=== PATIENT | male | born 1960 | race Hispanic/Latino ===

== ENCOUNTER 2018-07-15 12:10 | Emergency (ER) | payer BC, OTHER ==
[~2018-07-15 12:10] MED LIST: AMLO1CAP6 PO; ASPI-555 PO; ATOR40TA69 PO; ESOM20CA34 PO; INSU300I SQ
[2018-07-15 12:48] LABS: BASOPHILS % (AUTO) 0.9 % (0.0-5.0); EOSINOPHILS % (AUTO) 1.6 % (0.0-8.0); HEMATOCRIT 41.4 % (42-54); LYMPHOCYTES % (AUTO) 13.6 % (21.0-51.0); MEAN CORPUSCULAR HGB CONC 35.2 g/dL (32.0-36.0); MEAN CORPUSCULAR VOLUME 93.6 fL (79-99); MONOCYTES % (AUTO) 9.3 % (3.0-13.0); NEUTROPHILS % (AUTO) 74.6 % (40.0-77.0); PLATELET COUNT (AUTO) 154 K/uL (130-400); RED BLOOD CELL COUNT(AUTO) 4.42 MIL/uL (4.50-6.20); WHITE BLOOD COUNT (AUTO) 5.3 K/uL (4.8-10.8)
[2018-07-15 12:52] LABS: CREATININE 1.6 mg/dL (0.5-1.5); POTASSIUM 3.8 mmol/L (3.5-5.1)
[2018-07-15] MEDS ORDERED: SODIUM CHLORIDE 0.9% 1000ML 1,000 ML IV ONE (12:52)
[2018-07-15] MEDS ORDERED: ONDANSETRON HCL 4 MG/2 ML VIAL ONE (12:52)
[2018-07-15 13:01] LABS: ALBUMIN 4.3 g/dL (3.5-5.0)
== END 2018-07-15 15:05 | disposition home or self-care (01) ==
LOC: EDH 12:10
DX: R55 Syncope and collapse (principal); E11.65 Type 2 diabetes mellitus with hyperglycemia; E78.5 Hyperlipidemia, unspecified; I10 Essential (primary) hypertension; Z98.890 Other specified postprocedural states; Z88.1 Allergy status to other antibiotic agents; Z87.891 Personal history of nicotine dependence
CPT/HCPCS: 36415; 80053; 82550; 82948; 83880; 84484; 85025; 93005; 96361; 96374; 99285; J2405; J7030

== ENCOUNTER 2019-02-21 07:51 | Emergency (ER) | payer BC, OTHER ==
[2019-02-21] MEDS ORDERED: SODIUM CHLORIDE 0.9% 1000ML 1,000 ML IV ONE ×3 (08:16→10:38)
[2019-02-21] MEDS ORDERED: ONDANSETRON HCL 4 MG/2 ML VIAL ONE (08:16)
[2019-02-21 08:30] LABS: APPEARANCE,URINE Clear (CLEAR); BILIRUBIN,URINE Negative (NEGATIVE); COLOR,URINE Yellow (YELLOW); GLUCOSE, URINE (UA) >=1000 mg/dL (NEGATIVE); KETONES,URINE 40 mg/dL (NEGATIVE); LEUKOCYTE ESTERASE ,URINE Negative (NEGATIVE); NITRATE,URINE Negative (NEGATIVE); OCCULT BLOOD,URINE Negative (NEGATIVE); PROTEIN,URINE Trace mg/dL (NEGATIVE); UROBILINOGEN,URINE 0.2 mg/dL (0.2-1.0)
[2019-02-21 08:35] LABS: BASOPHILS % (AUTO) 0.4 % (0.0-5.0); EOSINOPHILS % (AUTO) 1.4 % (0.0-8.0); HEMATOCRIT 44.5 % (42-54); LYMPHOCYTES % (AUTO) 11.3 % (21.0-51.0); MEAN CORPUSCULAR HEMOGLOBIN 33.6 pg (27.0-33.0); MEAN CORPUSCULAR HGB CONC 35.1 g/dL (32.0-36.0); MEAN CORPUSCULAR VOLUME 95.6 fL (79-99); MONOCYTES % (AUTO) 9.4 % (3.0-13.0); NEUTROPHILS % (AUTO) 77.5 % (40.0-77.0); NUCLEATED RED BLOOD CELLS 0.1 % (0.0-0.19); PLATELET COUNT (AUTO) 144 K/uL (130-400); RED BLOOD CELL COUNT(AUTO) 4.65 MIL/uL (4.50-6.20); RED CELL DISTRIBUTION WIDTH 12.9 % (11.0-15.5); WHITE BLOOD COUNT (AUTO) 4.8 K/uL (4.8-10.8)
[2019-02-21 08:48] LABS: ABG BASE EXCESS -9.1 mmol/L (-2.0-3.0); ABG HCO3 15.1 mmol/L (21.0-28.0); ABG OXYGEN SATURATION 97.7 % (95.0-99.0); ABG PCO2 29 mmHg (35-48)
[2019-02-21 08:54] LABS: ALBUMIN 4.3 g/dL (3.5-5.0); BILIRUBIN,DIRECT 0.3 mg/dL (0.0-0.3); BILIRUBIN,TOTAL 1.3 mg/dL (0.2-1.0); CREATININE 1.2 mg/dL (0.5-1.5); POTASSIUM 4.5 mmol/L (3.5-5.1)
[2019-02-21 09:23] LABS: BACTERIA,URINE Rare /HPF (None Seen); RBC,URINE 0-1 /HPF (0-1); SQUAMOUS EPITHELIAL CELL,UR Rare /HPF (0-2); WBC,URINE 0-1 /HPF (0-1)
[2019-02-21] MEDS ORDERED: INSULIN HUMULIN R 100 UNIT/ML 3ML ONE (09:37)
[2019-02-21 12:16] LABS: POTASSIUM 3.8 mmol/L (3.5-5.1)
== END 2019-02-21 14:28 | disposition home or self-care (01) ==
LOC: EDH 07:51
DX: E11.65 Type 2 diabetes mellitus with hyperglycemia (principal); I10 Essential (primary) hypertension; E78.5 Hyperlipidemia, unspecified; Z79.4 Long term (current) use of insulin; Z88.1 Allergy status to other antibiotic agents; Z98.890 Other specified postprocedural states
CPT/HCPCS: 36415; 36600; 80048 ×2; 80076; 81001; 82435; 82550; 82803; 82947; 82948; 83605; 83690; 84132; 84295; 84484; 85018; 85025; 93005; 96361; 96374; 96375; 99285; J1815; J2405; J7030 ×3

== ENCOUNTER 2019-07-03 07:47 | Inpatient (IN) | payer BC, OTHER ==
[~2019-07-03] VITALS: Ht 172.7 cm; Wt 75.8 kg
[2019-07-03] VITALS (8 sets, daily range): BP systolic 127–153; BP diastolic 74–90
[2019-07-03 08:06] LABS: BASOPHILS % (AUTO) 0.4 % (0.0-5.0); EOSINOPHILS % (AUTO) 1.2 % (0.0-8.0); HEMATOCRIT 41.6 % (42-54); LYMPHOCYTES % (AUTO) 20.2 % (21.0-51.0); MEAN CORPUSCULAR HGB CONC 33.6 g/dL (32.0-36.0); MEAN CORPUSCULAR VOLUME 98.1 fL (79-99); MONOCYTES % (AUTO) 10.2 % (3.0-13.0); NUCLEATED RED BLOOD CELLS 0.1 % (0.0-0.19); PLATELET COUNT (AUTO) 193 K/uL (130-400); RED BLOOD CELL COUNT(AUTO) 4.24 MIL/uL (4.50-6.20); RED CELL DISTRIBUTION WIDTH 12.7 % (11.0-15.5); WHITE BLOOD COUNT (AUTO) 6.3 K/uL (4.8-10.8)
[2019-07-03 08:12] LABS: APPEARANCE,URINE Clear (CLEAR); BILIRUBIN,URINE Negative (NEGATIVE); COLOR,URINE Yellow (YELLOW); GLUCOSE, URINE (UA) >=1000 mg/dL (NEGATIVE); KETONES,URINE >=80 mg/dL (NEGATIVE); LEUKOCYTE ESTERASE ,URINE Negative (NEGATIVE); NITRATE,URINE Negative (NEGATIVE); OCCULT BLOOD,URINE Negative (NEGATIVE); PROTEIN,URINE Negative (NEGATIVE)
[2019-07-03] MEDS ORDERED: ONDANSETRON HCL 4 MG/2 ML VIAL ONE (08:13)
[2019-07-03] MEDS ORDERED: INSULIN HUMULIN R 100 UNIT/ML 3ML ONE ×2 (08:14→09:47)
[2019-07-03] MEDS ORDERED: SODIUM CHLORIDE 0.9% 1000ML 1,000 ML IV ONE ×3 (08:15→09:56)
[2019-07-03 08:19] LABS: CREATININE 1.5 mg/dL (0.5-1.5); POTASSIUM 5.1 mmol/L (3.5-5.1); TOTAL PROTEIN, SERUM 7.8 g/dL (6.0-8.3)
[2019-07-03 08:28] LABS: BACTERIA,URINE Rare /HPF (None Seen); RBC,URINE 0-1 /HPF (0-1); SQUAMOUS EPITHELIAL CELL,UR Rare /HPF (0-2); WBC,URINE 0-1 /HPF (0-1)
[2019-07-03 08:58] LABS: ABG PCO2 21 mmHg (35-48)
[2019-07-03] MEDS: SODIUM CHLORIDE 0.9% 1000ML 1,000 ML IV SCH ×3 (09:43→22:17)
[2019-07-03] MEDS ORDERED: DEXTROSE 5 %-0.45 % NACL 1,000 ML IV PRN ×2 (09:43)
[2019-07-03] MEDS ORDERED: SODIUM CHLORIDE 0.9% 1000ML 1,000 ML IV SCH ×3 (09:43)
[2019-07-03] MEDS ORDERED: POTASSIUM CHLORIDE 10MEQ/100ML 100 ML IV PRN ×2 (09:45)
[2019-07-03] MEDS ORDERED: DEXTROSE 5 %-0.45 % NACL 1,000 ML IV ONE (09:46)
[2019-07-03] MEDS ORDERED: SODIUM CHLORIDE 0.9% 100 ML IV ONE (09:48)
[2019-07-03 09:52] LABS: MAGNESIUM 2.3 mg/dL (1.80-2.40); PHOSPHORUS 5.5 mg/dL (2.5-4.9)
[2019-07-03] MEDS ORDERED: SODIUM BICARBONATE 650 MG TAB PO SCH (10:45)
[2019-07-03 11:07] LABS: CREATININE,URINE RANDOM 46 mg/dL (30-135); SODIUM,URINE RANDOM 37 mmol/l (40-220)
[2019-07-03 11:14] LABS: HEMOGLOBIN A1C 9.5 % (4.0-6.0)
[2019-07-03] MEDS ORDERED: ACETAMINOPHEN 325 MG TAB PO PRN (11:15)
[2019-07-03] MEDS ORDERED: ONDANSETRON HCL 4 MG/2 ML VIAL IVP PRN (11:15)
[2019-07-03 14:12] LABS: ABG BASE EXCESS -11.5 mmol/L (-2.0-3.0); ABG HCO3 13.4 mmol/L (21.0-28.0); ABG OXYGEN SATURATION 96.1 % (95.0-99.0); ABG PCO2 28 mmHg (35-48)
[2019-07-03 14:48] LABS: CREATININE 1.3 mg/dL (0.5-1.5); POTASSIUM 4.8 mmol/L (3.5-5.1)
[2019-07-03] MEDS ORDERED: INSU300I SQ (17:13)
[2019-07-03] MEDS: FAMOTIDINE/PF 20 MG/2 ML VIAL IV SCH (20:34)
[2019-07-03] MEDS: SODIUM BICARBONATE 650 MG TAB PO SCH (20:35)
[2019-07-03 20:36] LABS: CREATININE 1.2 mg/dL (0.5-1.5)
[2019-07-03] MEDS ORDERED: INSULIN HUMULIN R 100 UNIT/ML 3ML SQ SCH (22:00)
[2019-07-03] MEDS: INSULIN HUMULIN R 100 UNIT/ML 3ML SQ SCH (22:15)
[2019-07-03 22:27] LABS: ABG BASE EXCESS -3.1 mmol/L (-2.0-3.0); ABG HCO3 20.4 mmol/L (21.0-28.0); ABG OXYGEN SATURATION 97.7 % (95.0-99.0); ABG PCO2 32 mmHg (35-48)
[2019-07-04] MEDS: SODIUM CHLORIDE 0.9% 1000ML 1,000 ML IV SCH ×2 (02:35→10:35)
[2019-07-04 02:45] VITALS: BP 159/83
--- NOTE | 2019-07-04 02:45 | NUR ---
ICU TRANSFER PT TRANSFERRED FROM 217 INTO ROOM 408 VIA WHEELCHAIR. PT AWAKE, ALERT AND RESPONSIVE NO C/O PAIN OR DISCOMFORT AT THIS TIME. PT ORIENTED TO ROOM, CALL OLIVEROS WITHIN REACH, BED IN LOWEST POSITION. Addendum: 07/04/19 at 0247 by YOLANDA WHITT RN Amended: Links added.
--- NOTE | 2019-07-04 02:50 | NUR ---
REPORT GIVEN TO MORALES ZUNIGA, TRANSFERRED TO ROOM 408.
[2019-07-04 04:34] LABS: ABG BASE EXCESS -4.6 mmol/L (-2.0-3.0); ABG HCO3 18.6 mmol/L (21.0-28.0); ABG OXYGEN SATURATION 98.1 % (95.0-99.0); ABG PCO2 30 mmHg (35-48)
[2019-07-04 05:14] LABS: BASOPHILS % (AUTO) 0.3 % (0.0-5.0); EOSINOPHILS % (AUTO) 1.7 % (0.0-8.0); HEMATOCRIT 37.6 % (42-54); LYMPHOCYTES % (AUTO) 13.7 % (21.0-51.0); MEAN CORPUSCULAR HEMOGLOBIN 33.4 pg (27.0-33.0); MEAN CORPUSCULAR VOLUME 95.6 fL (79-99); MONOCYTES % (AUTO) 15.7 % (3.0-13.0); NEUTROPHILS % (AUTO) 68.6 % (40.0-77.0); PLATELET COUNT (AUTO) 163 K/uL (130-400); RED BLOOD CELL COUNT(AUTO) 3.93 MIL/uL (4.50-6.20); RED CELL DISTRIBUTION WIDTH 12.7 % (11.0-15.5); WHITE BLOOD COUNT (AUTO) 5.4 K/uL (4.8-10.8)
[2019-07-04 05:29] LABS: CREATININE 0.9 mg/dL (0.5-1.5); MAGNESIUM 1.8 mg/dL (1.80-2.40)
[2019-07-04] MEDS: INSULIN HUMULIN R 100 UNIT/ML 3ML SQ SCH ×6 (05:44→16:58)
[2019-07-04 08:08] VITALS: BP 134/94
[2019-07-04] MEDS ORDERED: INSU300I SQ (08:32)
[2019-07-04] MEDS ORDERED: ENOXAPARIN SODIUM 30 MG/0.3 ML SQ SCH (09:00)
[2019-07-04] MEDS ORDERED: POTASSIUM CHLORIDE 20MEQ/100ML 100 ML IV PRN (10:30)
[2019-07-04] MEDS ORDERED: LIDOCAINE HCL-MPF 1% 2ML VIAL IV PRN (10:30)
[2019-07-04] MEDS ORDERED: POTASSIUM CHLORIDE 10% ELIXIR 20 MEQ/15 ML UDCUP PO PRN (10:30)
[2019-07-04] MEDS ORDERED: POTASSIUM CHLORIDE 20 MEQ ERTAB PO ONE (10:37)
[2019-07-04] MEDS: SODIUM BICARBONATE 650 MG TAB PO SCH (10:40)
[2019-07-04] MEDS: FAMOTIDINE/PF 20 MG/2 ML VIAL IV SCH (10:40)
[2019-07-04] MEDS: POTASSIUM CHLORIDE 20 MEQ ERTAB PO PRN ×4 (10:41→15:02)
[2019-07-04 11:45] VITALS: BP 156/97
--- NOTE | 2019-07-04 15:04 | NUR ---
RD NOTIFICATION DX: JEREMY. HX: DM, HYPERLIPIDEMIA, HTN, HEART FAILURE. DIET: 30GMCCD. PO INTAKE 100% AND HAS GREAT APPETITE PER PT. LBM: 07/04. PT IS AWARE OF DM DIETARY RECOMMENDATIONS AND EATS ACCORDINGLY AT HOME. COOKS FOR PT, AND PT CLAIMS TO EAT WELL. PT CLAIMS TO TAKE MEDICATIONS AND HOME AND FOLLOWS DIET, HOWEVER DOES NOT CHECK HIS BG REGULARLY. RD PROVIDED DM DIET AND NUTRITION EDUCATION. PT ASKED QUESTIONS, RD ANSWERED, PT VERBALIZED UNDERSTANDING. EDUCATION MATERIALS PROVIDED. RD RECOMMENDS CONTINUE CURRENT DIET. ADVANCE DIET TOLERATED TO 60GMCCD. RD PROVIDED DM DIET AND NUTRITION EDUCATION. RD WILL CONTINUE TO MONITOR AND FOLLOW UP NEEDED. Addendum: 07/04/19 at [address] RD Amended: Links added.
--- NOTE | 2019-07-04 15:05 | NUR ---
DIET EDUCATION PT IS AWARE OF DM DIETARY RECOMMENDATIONS AND EATS ACCORDINGLY AT HOME. COOKS FOR PT, AND PT CLAIMS TO EAT WELL. PT CLAIMS TO TAKE MEDICATIONS AND HOME AND FOLLOWS DIET, HOWEVER DOES NOT CHECK HIS BG REGULARLY. CHRISTOPHER PROVIDED DM DIET AND NUTRITION EDUCATION. PT ASKED QUESTIONS, RD ANSWERED, PT VERBALIZED UNDERSTANDING. EDUCATION MATERIALS PROVIDED. Addendum: 07/04/19 at [address] RD Amended: Links added.
--- NOTE | 2019-07-04 17:16 | NUR ---
INITIAL MET W PT, ALONE, AAOX3, INP, WRKG, ACTIVE, NO DME; HAS HAD DM ii FOR 22 YEARS- WAS ON PILLS, NOW JUST INSULIN DCP IS HOME, TRANSPORT PROVIDED BY [facility]. INFO ON [facility]
== END 2019-07-04 17:59 | disposition home or self-care (01) | DRG 637 ==
LOC: EDH 07:47 → EDHIP 09:39 → 2CH 16:22 → 4BH 07-04 02:16
PROVIDERS: ADMIT Internal Medicine; ATTEND Internal Medicine
DX: E11.10 Type 2 diabetes mellitus with ketoacidosis without coma (principal); N17.0 Acute kidney failure with tubular necrosis; I50.32 Chronic diastolic (congestive) heart failure; E86.1 Hypovolemia; E78.5 Hyperlipidemia, unspecified; I11.0 Hypertensive heart disease with heart failure; Z82.0 Family history of epilepsy and other diseases of the nervous system; Z82.3 Family history of stroke; Z82.5 Family history of asthma and other chronic lower respiratory diseases; Z83.3 Family history of diabetes mellitus; Z82.49 Family history of ischemic heart disease and other diseases of the circulatory system
CPT/HCPCS: 36415; 36600; 80048; 80053; 81001; 82010; 82550; 82570; 82803; 82948; 83036; 83690; 83735; 84100; 84300; 84484; 85025; 93005; 99291; G0378; J1650; J1815; J2405; J3490; J7030; J7042

== ENCOUNTER 2020-05-28 20:09 | Inpatient (IN) | payer BC ==
[~2020-05-28] VITALS: Ht 175.3 cm; Wt 78.0 kg
[~2020-05-28 20:09] MED LIST changes: -ASPI-555 PO
[2020-05-28 21:33] LABS: BASOPHILS % (AUTO) 0.2 % (0.0-5.0); EOSINOPHILS % (AUTO) 0.2 % (0.0-8.0); LYMPHOCYTES % (AUTO) 16.3 % (21.0-51.0); MEAN CORPUSCULAR HEMOGLOBIN 32.2 pg (27.0-33.0); MEAN CORPUSCULAR HGB CONC 34.1 g/dL (32.0-36.0); MEAN CORPUSCULAR VOLUME 94.4 fL (79-99); MONOCYTES % (AUTO) 6.4 % (3.0-13.0); NEUTROPHILS % (AUTO) 76.3 % (40.0-77.0); PLATELET COUNT (AUTO) 196 K/uL (130-400); RED BLOOD CELL COUNT(AUTO) 4.13 MIL/uL (4.50-6.20); RED CELL DISTRIBUTION WIDTH 11.9 % (11.0-15.5); WHITE BLOOD COUNT (AUTO) 5.3 K/uL (4.8-10.8)
[2020-05-28 21:42] LABS: INR 1.01 (0.85-1.15); PARTIAL THROMBOPLASTIN TIME 24.7 SEC (26.3-35.5); PROTHROMBIN TIME 10.9 SEC (9.6-11.6)
[2020-05-28] MEDS ORDERED: ONDANSETRON HCL 4 MG/2 ML VIAL ONE (21:42)
[2020-05-28 21:43] LABS: ALBUMIN 4.4 g/dL (3.5-5.0); BILIRUBIN,TOTAL 0.9 mg/dL (0.2-1.0); CREATININE 1.7 mg/dL (0.5-1.5); POTASSIUM 4.8 mmol/L (3.5-5.1); TOTAL PROTEIN, SERUM 7.7 g/dL (6.0-8.3)
[2020-05-28] MEDS ORDERED: INSULIN HUMULIN R 100 UNIT/ML 3ML ONE (21:43)
[2020-05-28 22:00] LABS: B-TYPE NATRIURETIC PEPTIDE 62 pg/mL (0-100)
[2020-05-28] MEDS ORDERED: ONDANSETRON HCL 4 MG/2 ML VIAL IV PRN (23:15)
[2020-05-28] MEDS ORDERED: ACETAMINOPHEN 325 MG TAB PO PRN ×2 (23:15)
[2020-05-29] VITALS (11 sets, daily range): BP systolic 113–166; BP diastolic 61–96
--- NOTE | 2020-05-29 03:15 | NUR ---
PT ARRIVED TO ROOM 427, AAOx3 NO APPARENT DISTRESS. AMBULATES WITH NO HELP. PT STATES HE FEELS A LITTLE NAUSEOUS, STARTED FEELING NAUSEOUS WITH VOMITING DURING THE DAY YESTERDAY 05/28. CALL LIGHT WITHIN REACH. BED TO LOWEST LEVEL, LOCKED, 2 SIDE RAILS UP. HOME MEDS AT BEDSIDE.
--- NOTE | 2020-05-29 04:40 | NUR ---
EMESIS X3, GREEN LIQUID. BMX1 SOFT AND FORMED.
[2020-05-29] MEDS: SODIUM CHLORIDE 0.9% 1000ML 1,000 ML IV SCH ×3 (04:51→14:30)
[2020-05-29 05:33] LABS: HEMATOCRIT 37.4 % (42-54); MEAN CORPUSCULAR HGB CONC 33.2 g/dL (32.0-36.0); MEAN CORPUSCULAR VOLUME 96.4 fL (79-99); RED BLOOD CELL COUNT(AUTO) 3.88 MIL/uL (4.50-6.20); RED CELL DISTRIBUTION WIDTH 11.9 % (11.0-15.5); WHITE BLOOD COUNT (AUTO) 8.4 K/uL (4.8-10.8)
[2020-05-29] MEDS ORDERED: INSULIN HUMULIN R 100 UNIT/ML 3ML ONE (05:55)
[2020-05-29] MEDS: INSULIN GLARGINE 100 UNITS/ML 10 ML VIAL SQ SCH ×2 (05:56→06:01)
[2020-05-29] MEDS: INSULIN HUMULIN R 100 UNIT/ML 3ML SQ SCH ×3 (05:57→20:54)
[2020-05-29 06:00] LABS: CREATININE 1.6 mg/dL (0.5-1.5); POTASSIUM 5.9 mmol/L (3.5-5.1)
[2020-05-29] MEDS: ATORVASTATIN CALCIUM 40 MG TABLET PO SCH (08:59)
[2020-05-29] MEDS: ENOXAPARIN SODIUM 40 MG/0.4 ML SYRINGE SQ SCH (08:59)
[2020-05-29] MEDS: FAMOTIDINE 20MG TAB 20 MG TAB PO SCH ×2 (08:59→20:53)
[2020-05-29] MEDS: AMLODIPINE-BENAZEPRIL 5-20 MG PO SCH (08:59)
[2020-05-29] MEDS ORDERED: INSULIN REGULAR, HUMAN 3ML 100 UNIT in SODIUM CHLORIDE 0.9% 99 ML IV PRN ×2 (13:45)
[2020-05-29 13:59] LABS: HEMOGLOBIN A1C 8.5 % (4.0-6.0)
[2020-05-29 14:02] LABS: CREATININE 1.7 mg/dL (0.5-1.5); POTASSIUM 5.3 mmol/L (3.5-5.1)
[2020-05-29 14:04] LABS: ALBUMIN 3.3 g/dL (3.5-5.0); TOTAL PROTEIN, SERUM 6.2 g/dL (6.0-8.3)
--- NOTE | 2020-05-29 14:40 | NUR ---
PATIENT TRANSFER PATIENT TRANSFER TO DAY PATIENT ICU ROOM 1A, REPORT GIVEN TO DIANA RICO AT APPROX 1420 HOURS.
[2020-05-29 14:51] LABS: ABG BASE EXCESS -9.6 mmol/L (-2.0-3.0); ABG HCO3 14.2 mmol/L (21.0-28.0); ABG OXYGEN SATURATION 97.4 % (95.0-99.0); ABG PCO2 26 mmHg (35-48)
--- NOTE | 2020-05-29 15:06 | NUR ---
SPOKE W [facility] FOR D/C PLANNING. LIVES W SPOUSE AND ADULT CHILDREN. PATIENT ACTIVE, INDEPENDENT, DRIVES, EMPLOYED, HOME SAFE AND ACCESSIBLE HAS DM X > 10 YEARS, CHECK SUGAR Q AM, ON INSULIN, OBTAINS MEDS AT [facility], FOLLOWS WITH DR. CLINTON Q YEAR AND PRN. ANAIS ROCA CM TO FOLLOW Addendum: 05/29/20 at 1509 by ANN BEASLEY RN CM Amended: Links added.
[2020-05-29 18:32] LABS: CREATININE 1.5 mg/dL (0.5-1.5); POTASSIUM 4.1 mmol/L (3.5-5.1)
[2020-05-29] MEDS ORDERED: INSULIN GLARGINE 100 UNITS/ML 10 ML VIAL SQ SCH (21:00)
[2020-05-29] MEDS: DEXTROSE 5 %-0.45 % NACL 1,000 ML IV SCH (21:41)
[2020-05-29 22:03] LABS: CREATININE 1.3 mg/dL (0.5-1.5); POTASSIUM 3.5 mmol/L (3.5-5.1)
[2020-05-30] VITALS (16 sets, daily range): BP systolic 130–171; BP diastolic 74–99
[2020-05-30] MEDS: HYDRALAZINE HCL 20 MG/ML VIAL IV PRN ×2 (00:51→06:32)
--- NOTE | 2020-05-30 02:21 | NUR ---
PATIENT UPDATE Pt in the ICU for the DKA, transferred fr 427 from the previous shift. Received with ongoing ivf of d5 1/2 ns at 175 cc/hr , also on insulin drip per protocol. No complaints of any abdominal pain, no nausea nor vomiting. Blood pressure at midnight at 166/96 mmhg, hydralazine 10 mg given slow iv push. bp rechecked down to 154/87, will continue to monitor.
[2020-05-30 02:28] LABS: CREATININE 1.1 mg/dL (0.5-1.5); POTASSIUM 3.3 mmol/L (3.5-5.1)
[2020-05-30] MEDS: DEXTROSE 5 %-0.45 % NACL 1,000 ML IV SCH ×3 (02:58→08:05)
[2020-05-30 06:21] LABS: CREATININE 1.1 mg/dL (0.5-1.5); POTASSIUM 3.4 mmol/L (3.5-5.1)
[2020-05-30] MEDS: INSULIN HUMULIN R 100 UNIT/ML 3ML SQ SCH ×6 (06:55→20:38)
[2020-05-30] MEDS: INSULIN GLARGINE 100 UNITS/ML 10 ML VIAL SQ SCH (08:00)
[2020-05-30] MEDS: FAMOTIDINE 20MG TAB 20 MG TAB PO SCH ×2 (08:04→20:37)
[2020-05-30] MEDS: AMLODIPINE-BENAZEPRIL 5-20 MG PO SCH (08:04)
[2020-05-30] MEDS: ATORVASTATIN CALCIUM 40 MG TABLET PO SCH (08:04)
[2020-05-30] MEDS: ENOXAPARIN SODIUM 40 MG/0.4 ML SYRINGE SQ SCH (08:05)
[2020-05-30 10:23] LABS: POTASSIUM 3.2 mmol/L (3.5-5.1)
[2020-05-30] MEDS ORDERED: INSULIN GLARGINE 100 UNITS/ML 10 ML VIAL SQ SCH ×2 (11:30→21:00)
[2020-05-30] MEDS ORDERED: INSULIN HUMULIN R 100 UNIT/ML 3ML SQ SCH (11:30)
--- NOTE | 2020-05-30 12:16 | NUR ---
Report and transfer to medical floor. Report called to Ruma, receiving nurse for transfer to medical floor. All questions answered.
[2020-05-30] MEDS: METOPROLOL TARTRATE 25 MG TAB PO SCH (20:37)
[2020-05-30] MEDS ORDERED: POTASSIUM CHLORIDE 20 MEQ ERTAB PO SCH (22:00)
--- NOTE | 2020-05-30 23:36 | NUR ---
ROUNDS PATIENT RESTING IN BED WITH OU CLOSED. EASILY AROUSED. VOICES ALL NEEDS. NO COMPLAINTS OF PAIN VOICED AT THIS TIME. VITALS STABLE. AFEBRILE. RESP EVEN AND UNLABORED. NO SOB NOTED. ON ROOM AIR. NO SIGNS OR SYMPTOMS OF HYPER OR HYPOGLYCEMIA NOTED AT THIS TIME. SNACK GIVEN. NO NAUSEA OR VOMITING NOTED AT THIS TIME. NO SIGNS OF DISTRESS NOTED. CALL LIGHT WITHIN REACH. WILL CONTINUE TO BE OBSERVED. Addendum: 05/30/20 at 2342 by JOSE MONROE RN RN Amended: Links added.
[2020-05-31] MEDS: HYDRALAZINE HCL 20 MG/ML VIAL IV PRN ×2 (04:55→11:27)
[2020-05-31] MEDS: INSULIN HUMULIN R 100 UNIT/ML 3ML SQ SCH ×7 (05:53→20:44)
[2020-05-31 08:10] VITALS: BP 139/81
[2020-05-31] MEDS: FAMOTIDINE 20MG TAB 20 MG TAB PO SCH ×2 (08:20→20:19)
[2020-05-31] MEDS: ATORVASTATIN CALCIUM 40 MG TABLET PO SCH (08:20)
[2020-05-31] MEDS: METOPROLOL TARTRATE 25 MG TAB PO SCH ×2 (08:21→20:19)
[2020-05-31] MEDS: ENOXAPARIN SODIUM 40 MG/0.4 ML SYRINGE SQ SCH (08:22)
[2020-05-31] MEDS ORDERED: LISINOPRIL 5 MG TABLET PO SCH (09:00)
[2020-05-31 11:18] VITALS: BP 161/102
[2020-05-31] MEDS: POTASSIUM CHLORIDE 20 MEQ ERTAB PO SCH (11:18)
[2020-05-31] MEDS: INSULIN GLARGINE 100 UNITS/ML 10 ML VIAL SQ SCH ×2 (11:24→20:43)
[2020-05-31 16:14] VITALS: BP 145/94
[2020-05-31 20:00] VITALS: BP 135/85
--- NOTE | 2020-05-31 20:00 | NUR ---
assessment/teaching patient awake, alert, ox3, no sob, no c/o pain at this time,reinforce teaching on diabetes, importance to follow diet and prescribed medications as ordered by physcian, patient verbalizes understanding via teach back, teach patient plan of care and expected outcome, patient verbalizes understanding via teach back
[2020-06-01] VITALS (7 sets, daily range): BP systolic 139–164; BP diastolic 94–102
[2020-06-01] MEDS: INSULIN HUMULIN R 100 UNIT/ML 3ML SQ SCH ×7 (06:05→20:40)
[2020-06-01 06:20] LABS: BASOPHILS % (AUTO) 0.2 % (0.0-5.0); EOSINOPHILS % (AUTO) 1.4 % (0.0-8.0); LYMPHOCYTES % (AUTO) 19.5 % (21.0-51.0); MEAN CORPUSCULAR HEMOGLOBIN 31.9 pg (27.0-33.0); MEAN CORPUSCULAR HGB CONC 34.9 g/dL (32.0-36.0); MEAN CORPUSCULAR VOLUME 91.5 fL (79-99); NEUTROPHILS % (AUTO) 65.7 % (40.0-77.0); PLATELET COUNT (AUTO) 146 K/uL (130-400); RED BLOOD CELL COUNT(AUTO) 4.26 MIL/uL (4.50-6.20); RED CELL DISTRIBUTION WIDTH 11.7 % (11.0-15.5); WHITE BLOOD COUNT (AUTO) 4.3 K/uL (4.8-10.8)
[2020-06-01 06:51] LABS: ALBUMIN 3.3 g/dL (3.5-5.0); BILIRUBIN,TOTAL 1.1 mg/dL (0.2-1.0); CREATININE 0.8 mg/dL (0.5-1.5); POTASSIUM 3.3 mmol/L (3.5-5.1); TOTAL PROTEIN, SERUM 6.9 g/dL (6.0-8.3)
[2020-06-01] MEDS: ATORVASTATIN CALCIUM 40 MG TABLET PO SCH (08:53)
[2020-06-01] MEDS: FAMOTIDINE 20MG TAB 20 MG TAB PO SCH ×2 (08:53→20:42)
[2020-06-01] MEDS: METOPROLOL TARTRATE 25 MG TAB PO SCH ×2 (08:53→20:43)
[2020-06-01] MEDS: LISINOPRIL 10 MG TABLET PO SCH (08:53)
[2020-06-01] MEDS: ENOXAPARIN SODIUM 40 MG/0.4 ML SYRINGE SQ SCH (08:54)
[2020-06-01] MEDS: POTASSIUM CHLORIDE 20 MEQ ERTAB PO SCH (11:47)
[2020-06-01] MEDS ORDERED: INSULIN GLARGINE 100 UNITS/ML 10 ML VIAL SQ SCH (21:00)
[2020-06-01] MEDS ORDERED: HYDROMORPHONE HCL 2 MG/ML VIAL ONE (21:41)
[2020-06-01] MEDS: HYDROMORPHONE HCL 2 MG/ML VIAL IVP PRN (23:21)
[2020-06-02] MEDS: HYDROMORPHONE HCL 2 MG/ML VIAL IVP PRN ×5 (01:16→05:48)
[2020-06-02 03:55] VITALS: BP 150/92
[2020-06-02] MEDS: INSULIN HUMULIN R 100 UNIT/ML 3ML SQ SCH ×6 (05:47→20:47)
[2020-06-02 05:52] LABS: BASOPHILS % (AUTO) 0.6 % (0.0-5.0); EOSINOPHILS % (AUTO) 3.9 % (0.0-8.0); HEMATOCRIT 39.2 % (42-54); LYMPHOCYTES % (AUTO) 20.2 % (21.0-51.0); MEAN CORPUSCULAR HEMOGLOBIN 32.2 pg (27.0-33.0); MEAN CORPUSCULAR HGB CONC 34.7 g/dL (32.0-36.0); MEAN CORPUSCULAR VOLUME 92.9 fL (79-99); NEUTROPHILS % (AUTO) 60.1 % (40.0-77.0); PLATELET COUNT (AUTO) 147 K/uL (130-400); RED BLOOD CELL COUNT(AUTO) 4.22 MIL/uL (4.50-6.20); RED CELL DISTRIBUTION WIDTH 11.6 % (11.0-15.5); WHITE BLOOD COUNT (AUTO) 4.7 K/uL (4.8-10.8)
[2020-06-02 06:10] LABS: ALBUMIN 3.3 g/dL (3.5-5.0); BILIRUBIN,TOTAL 1.2 mg/dL (0.2-1.0); POTASSIUM 4.1 mmol/L (3.5-5.1); TOTAL PROTEIN, SERUM 6.9 g/dL (6.0-8.3)
[2020-06-02] MEDS: FAMOTIDINE 20MG TAB 20 MG TAB PO SCH ×2 (08:09→19:33)
[2020-06-02] MEDS: ATORVASTATIN CALCIUM 40 MG TABLET PO SCH (08:09)
[2020-06-02] MEDS: METOPROLOL TARTRATE 25 MG TAB PO SCH ×2 (08:10→19:33)
[2020-06-02] MEDS: LISINOPRIL 10 MG TABLET PO SCH (08:10)
[2020-06-02] MEDS: ENOXAPARIN SODIUM 40 MG/0.4 ML SYRINGE SQ SCH (08:11)
[2020-06-02 08:39] VITALS: BP 148/97
[2020-06-02 11:36] VITALS: BP 158/97
[2020-06-02] MEDS ORDERED: METOPROLOL TARTRATE 25 MG TAB PO SCH (15:45)
[2020-06-02] MEDS ORDERED: LISINOPRIL 10 MG TABLET PO SCH (15:45)
[2020-06-02 16:15] VITALS: BP 166/106
[2020-06-02] MEDS ORDERED: INSULIN HUMULIN R 100 UNIT/ML 3ML SQ SCH (17:30)
[2020-06-02 19:00] VITALS: BP 127/89
[2020-06-02] MEDS ORDERED: METOPROLOL TARTRATE 25 MG TAB ONE (19:29)
[2020-06-02] MEDS ORDERED: INSULIN GLARGINE 100 UNITS/ML 10 ML VIAL SQ SCH ×3 (21:00)
[2020-06-03] VITALS: BP_SYST 163; BP_DIAS 95; BP_DIAS 98
[2020-06-03] MEDS: HYDROMORPHONE HCL 2 MG/ML VIAL IVP PRN ×5 (00:38→05:14)
[2020-06-03] MEDS: HYDRALAZINE HCL 20 MG/ML VIAL IV PRN (01:57)
[2020-06-03 04:00] VITALS: BP 124/79
[2020-06-03 04:15] LABS: BASOPHILS % (AUTO) 0.4 % (0.0-5.0); EOSINOPHILS % (AUTO) 2.2 % (0.0-8.0); HEMATOCRIT 40.6 % (42-54); LYMPHOCYTES % (AUTO) 17.8 % (21.0-51.0); MEAN CORPUSCULAR HEMOGLOBIN 31.7 pg (27.0-33.0); MEAN CORPUSCULAR HGB CONC 34.2 g/dL (32.0-36.0); MEAN CORPUSCULAR VOLUME 92.5 fL (79-99); MONOCYTES % (AUTO) 12.7 % (3.0-13.0); NEUTROPHILS % (AUTO) 66.3 % (40.0-77.0); PLATELET COUNT (AUTO) 155 K/uL (130-400); RED BLOOD CELL COUNT(AUTO) 4.39 MIL/uL (4.50-6.20); RED CELL DISTRIBUTION WIDTH 11.4 % (11.0-15.5); WHITE BLOOD COUNT (AUTO) 5.3 K/uL (4.8-10.8)
[2020-06-03 04:29] LABS: % IRON SATURATION 35.5 % (30-44); ALBUMIN 3.4 g/dL (3.5-5.0); CREATININE 1.1 mg/dL (0.5-1.5); POTASSIUM 4.4 mmol/L (3.5-5.1); TOTAL PROTEIN, SERUM 6.9 g/dL (6.0-8.3)
[2020-06-03] MEDS: INSULIN HUMULIN R 100 UNIT/ML 3ML SQ SCH ×5 (06:04→16:30)
[2020-06-03] MEDS ORDERED: INSULIN GLARGINE 100 UNITS/ML 10 ML VIAL SQ SCH (07:30)
[2020-06-03 08:17] VITALS: BP 120/80
[2020-06-03] MEDS ORDERED: LISINOPRIL 20 MG TABLET PO SCH (09:00)
[2020-06-03] MEDS: METOPROLOL TARTRATE 25 MG TAB PO SCH (09:09)
[2020-06-03] MEDS: FAMOTIDINE 20MG TAB 20 MG TAB PO SCH (09:09)
[2020-06-03] MEDS: ENOXAPARIN SODIUM 40 MG/0.4 ML SYRINGE SQ SCH (09:10)
--- NOTE | 2020-06-03 11:18 | NUR ---
i reported to dr nino that pt has elevated blood sugar of 412 and that pt's lantus was held last night due to a low blood sugar at that time in the 40's; i also let him know what changes dr adams has made inregards to the low blood sugar and recomendations for home treatment; he stated he would be here in about an hour to see the patient.
--- NOTE | 2020-06-03 11:45 | NUR ---
lab reported to me that pt has been pending a pcr and urinalysis collection since 05-28-2020; i collected the pcr and informed pt of need for a urine collection and gave him a clean urinal to use; he understands to call after he has urinated.
[2020-06-03 11:56] VITALS: BP 125/77
[2020-06-03 13:33] LABS: APPEARANCE,URINE Clear (CLEAR); BILIRUBIN,URINE Negative (NEGATIVE); COLOR,URINE Yellow (YELLOW); GLUCOSE, URINE (UA) >=1000 mg/dL (NEGATIVE); KETONES,URINE Negative (NEGATIVE); LEUKOCYTE ESTERASE ,URINE Negative (NEGATIVE); NITRATE,URINE Negative (NEGATIVE); OCCULT BLOOD,URINE Negative (NEGATIVE); PH,URINE 5.5 (5.0-8.0); PROTEIN,URINE Negative (NEGATIVE); UROBILINOGEN,URINE 0.2 mg/dL (0.2-1.0)
[2020-06-03 14:04] LABS: BACTERIA,URINE Rare /HPF (None Seen); RBC,URINE 0-1 /HPF (0-1); SQUAMOUS EPITHELIAL CELL,UR Rare /HPF (0-2); WBC,URINE 0-1 /HPF (0-1)
[2020-06-03 16:49] VITALS: BP 158/95
--- NOTE | 2020-06-03 18:06 | NUR ---
pt stated understanding of all d/c instructions including: changes in home medications with addition of fast acting insulin; f/u with dr Gamino for diabetic management and to return to ed for any return of DKA problems. pt stated understanding of all instructions; iv access removed, pt has called his to come and pick him up.
== END 2020-06-03 18:30 | disposition home or self-care (01) | DRG 638 ==
LOC: EDH 20:09 → EDHIP 23:07 → 4DH 05-29 03:15 → DAHIP 05-29 15:44 → 3AH 05-30 12:49
PROVIDERS: ADMIT Internal Medicine; ATTEND Internal Medicine
DX: E11.10 Type 2 diabetes mellitus with ketoacidosis without coma (principal); E87.1 Hypo-osmolality and hyponatremia; Z20.828 Contact with and (suspected) exposure to other viral communicable diseases; E78.5 Hyperlipidemia, unspecified; Z79.899 Other long term (current) drug therapy; Z91.19 Patient's noncompliance with other medical treatment and regimen; E86.1 Hypovolemia; R74.0 Nonspecific elevation of levels of transaminase and lactic acid dehydrogenase [LDH]; E87.6 Hypokalemia; Z88.8 Allergy status to other drugs, medicaments and biological substances; Z83.3 Family history of diabetes mellitus; Z91.11 Patient's noncompliance with dietary regimen; E11.21 Type 2 diabetes mellitus with diabetic nephropathy; I10 Essential (primary) hypertension
CPT/HCPCS: 36415; 36600; 80048; 80053; 81001; 82010; 82435; 82803; 82947; 82948; 83036; 83540; 83550; 83605; 83690; 83880; 84132; 84295; 84484; 85018; 85025; 85027; 85045; 85610; 85730; 87426; 93005; G0378; J0360; J1170; J1650; J1815; J2405; J7030; J7042

== ENCOUNTER 2020-06-14 21:56 | Emergency (ER) | payer BC ==
[2020-06-14 22:15] LABS: BASOPHILS % (AUTO) 0.7 % (0.0-5.0); EOSINOPHILS % (AUTO) 4.2 % (0.0-8.0); HEMATOCRIT 36.7 % (42-54); LYMPHOCYTES % (AUTO) 28.8 % (21.0-51.0); MEAN CORPUSCULAR HGB CONC 34.9 g/dL (32.0-36.0); MEAN CORPUSCULAR VOLUME 91.8 fL (79-99); NEUTROPHILS % (AUTO) 55.6 % (40.0-77.0); PLATELET COUNT (AUTO) 224 K/uL (130-400); RED CELL DISTRIBUTION WIDTH 11.8 % (11.0-15.5); WHITE BLOOD COUNT (AUTO) 7.2 K/uL (4.8-10.8)
[2020-06-14 22:36] LABS: ALBUMIN 3.4 g/dL (3.5-5.0); BILIRUBIN,TOTAL 0.3 mg/dL (0.2-1.0); POTASSIUM 3.2 mmol/L (3.5-5.1); TOTAL PROTEIN, SERUM 7.2 g/dL (6.0-8.3)
== END 2020-06-14 23:06 | disposition home or self-care (01) ==
LOC: EDH 21:56
DX: E16.0 Drug-induced hypoglycemia without coma (principal); I10 Essential (primary) hypertension; E78.5 Hyperlipidemia, unspecified; Z88.1 Allergy status to other antibiotic agents
CPT/HCPCS: 36415; 80053; 82948; 85025; 93005

== ENCOUNTER 2021-03-02 07:34 | Emergency (ER) | payer BC ==
[~2021-03-02] VITALS: Ht 172.7 cm; Wt 74.8 kg
[2021-03-02 07:36] VITALS: BP 116/52
[2021-03-02 08:01] LABS: BASOPHILS % (AUTO) 0.5 % (0.0-5.0); EOSINOPHILS % (AUTO) 1.7 % (0.0-8.0); HEMATOCRIT 41.8 % (42-54); MEAN CORPUSCULAR HEMOGLOBIN 31.4 pg (27.0-33.0); MEAN CORPUSCULAR HGB CONC 33.3 g/dL (32.0-36.0); MEAN CORPUSCULAR VOLUME 94.6 fL (79-99); MONOCYTES % (AUTO) 10.3 % (3.0-13.0); NEUTROPHILS % (AUTO) 70.1 % (40.0-77.0); PLATELET COUNT (AUTO) 206 K/uL (130-400); RED BLOOD CELL COUNT(AUTO) 4.42 MIL/uL (4.50-6.20); RED CELL DISTRIBUTION WIDTH 12.1 % (11.0-15.5); WHITE BLOOD COUNT (AUTO) 7.9 K/uL (4.8-10.8)
[2021-03-02 08:10] LABS: APPEARANCE,URINE CLEAR (CLEAR); BILIRUBIN,URINE NEGATIVE (NEGATIVE); COLOR,URINE YELLOW (YELLOW); GLUCOSE, URINE (UA) >=1000 mg/dL (NEGATIVE); KETONES,URINE >=80 mg/dL (NEGATIVE); LEUKOCYTE ESTERASE ,URINE NEGATIVE (NEGATIVE); NITRATE,URINE NEGATIVE (NEGATIVE); OCCULT BLOOD,URINE NEGATIVE (NEGATIVE); PROTEIN,URINE NEGATIVE (NEGATIVE); UROBILINOGEN,URINE 0.2 mg/dL (0.2-1.0)
[2021-03-02] MEDS ORDERED: NACL 0.9% 1000ML 1,000 ML IV SCH (08:15)
[2021-03-02] MEDS ORDERED: ONDANSETRON 4MG INJ IVP SCH (08:15)
[2021-03-02 08:19] LABS: BACTERIA,URINE Rare /HPF (None Seen); RBC,URINE 0-1 /HPF (0-1); SQUAMOUS EPITHELIAL CELL,UR Rare /HPF (0-2); WBC,URINE 0-1 /HPF (0-1)
[2021-03-02 08:24] LABS: ALANINE AMINOTRANSFERASE 40 U/L (12-78); AMYLASE 35 U/L (25-115); ASPARTATE AMINOTRANSFERASE 23 U/L (10-37); BILIRUBIN,TOTAL 1.2 mg/dL (0.2-1.0); CARBON DIOXIDE 19 mmol/L (21-32); CREATININE 1.3 mg/dL (0.5-1.5); GLOMERULAR FILTR. RATE CALC 60 mL/min (>60); GLUCOSE,RANDOM 301 mg/dL (70-105); POTASSIUM 4.4 mmol/L (3.5-5.1); SODIUM SERUM 127 mmol/L (136-145); TOTAL PROTEIN, SERUM 7.8 g/dL (6.0-8.3); UREA NITROGEN, BLOOD 13 mg/dL (7-18)
[2021-03-02 08:26] LABS: LIPASE < 50 U/L (114-286)
[2021-03-02 08:27] LABS: CHLORIDE 85 mmol/L (101-111)
[2021-03-02] MEDS ORDERED: 0.9% NACL 50ML 50 ML IV ONE (08:46)
[2021-03-02] MEDS ORDERED: INSULIN HUMULIN R 100 UNIT/ML 3ML SQ SCH (09:45)
[2021-03-02 10:35] VITALS: BP 143/86
[2021-03-02] MEDS ORDERED: ONDA4TAB4 PO (12:01)
== END 2021-03-02 12:18 | disposition home or self-care (01) ==
LOC: EDH 07:34
DX: E86.0 Dehydration (principal); R11.2 Nausea with vomiting, unspecified; R19.7 Diarrhea, unspecified; I10 Essential (primary) hypertension; E11.9 Type 2 diabetes mellitus without complications; Z79.899 Other long term (current) drug therapy; Z88.1 Allergy status to other antibiotic agents; Z79.4 Long term (current) use of insulin
CPT/HCPCS: 36415; 80053; 81001; 82150; 83690; 85025; 96372; 96374; 99284; J1815; J2405; J7030

== ENCOUNTER → 2021-05-05 | Outpatient (CLI) | payer OTHER ==
[~2021-05-05] MED LIST changes: +AEC81 PO; +INSU100I3 SQ; +LEVO750T46 PO; +METO25 PO; +ONDA4TAB4 PO
== END | disposition home or self-care (01) ==
LOC: OIH 10:01
PROVIDERS: ATTEND Internal Medicine Cardiovascular Disease
DX: Z13.6 Encounter for screening for cardiovascular disorders (principal)
CPT/HCPCS: 75571

== ENCOUNTER 2022-03-08 15:25 | Observation (INO) | payer OTHER ==
[~2022-03-08] VITALS: Ht 175.3 cm; Wt 83.0 kg
[~2022-03-08 15:25] MED LIST changes: -AEC81 PO; +INSU100I15 SQ; -INSU100I3 SQ; -LEVO750T46 PO; -ONDA4TAB4 PO
[2022-03-08 15:57] LABS: BASOPHILS % (AUTO) 0.3 % (0.0-5.0); EOSINOPHILS % (AUTO) 0.3 % (0.0-8.0); HEMATOCRIT 39.4 % (42-54); LYMPHOCYTES % (AUTO) 11.8 % (21.0-51.0); MEAN CORPUSCULAR HGB CONC 33.2 g/dL (32.0-36.0); MEAN CORPUSCULAR VOLUME 96.3 fL (79-99); MONOCYTES % (AUTO) 9.6 % (3.0-13.0); NEUTROPHILS % (AUTO) 77.4 % (40.0-77.0); PLATELET COUNT (AUTO) 183 K/uL (130-400); RED BLOOD CELL COUNT(AUTO) 4.09 MIL/uL (4.50-6.20); RED CELL DISTRIBUTION WIDTH 12.7 % (11.0-15.5); WHITE BLOOD COUNT (AUTO) 7.3 K/uL (4.8-10.8)
[2022-03-08 16:06] LABS: CREATININE 1.8 mg/dL (0.5-1.5); POTASSIUM 4.8 mmol/L (3.5-5.1)
[2022-03-08 16:11] LABS: ALBUMIN 3.6 g/dL (3.5-5.0); BILIRUBIN,TOTAL 0.8 mg/dL (0.2-1.0); TOTAL PROTEIN, SERUM 7.2 g/dL (6.0-8.3)
[2022-03-08 16:15] LABS: APPEARANCE,URINE CLEAR (CLEAR); BILIRUBIN,URINE MODERATE (NEGATIVE); COLOR,URINE YELLOW (YELLOW); GLUCOSE, URINE (UA) >=1000 mg/dL (NEGATIVE); KETONES,URINE 40 mg/dL (NEGATIVE); LEUKOCYTE ESTERASE ,URINE NEGATIVE (NEGATIVE); NITRATE,URINE NEGATIVE (NEGATIVE); OCCULT BLOOD,URINE NEGATIVE (NEGATIVE); PROTEIN,URINE NEGATIVE (NEGATIVE); UROBILINOGEN,URINE 0.2 mg/dL (0.2-1.0)
[2022-03-08 16:41] LABS: BACTERIA,URINE None Seen /HPF (None Seen); RBC,URINE None Seen /HPF (0-1); WBC,URINE 0-1 /HPF (0-1)
[2022-03-08 16:42] LABS: SQUAMOUS EPITHELIAL CELL,UR Rare /HPF (0-2)
[2022-03-08] MEDS ORDERED: 0.9%NACL 1000ML 1,000 ML IV ONE (17:30)
[2022-03-08 17:48] LABS: ABG OXYGEN SATURATION 44.9 % (95.0-99.0); BASE EXCESS,VENOUS BLOOD GAS -13.1 (-2.0-3.0); HCO3,VENOUS BLOOD GAS 13.1 (21.0-28.0); PCO2,VENOUS BLOOD GAS 32 (35-48); PH,VENOUS BLOOD GAS 7.234 (7.350-7.450)
[2022-03-08] MEDS ORDERED: INSULIN REGULAR, HUMAN 3ML 100 UNIT in 0.9%NACL 100ML 99 ML IV SCH ×2 (19:00)
[2022-03-08] MEDS ORDERED: INSULIN HUMULIN R 100 UNIT/ML 3ML ONE (20:06)
[2022-03-08] MEDS ORDERED: ONDANSETRON 4MG INJ IV PRN (20:30)
[2022-03-08] MEDS ORDERED: 0.9%NACL 1000ML 1,000 ML IV SCH (20:30)
[2022-03-08] MEDS ORDERED: MAG/ALUM/SIMETH 30 ML UDCUP PO PRN (20:30)
[2022-03-08] MEDS ORDERED: ACETAMINOPHEN 325 MG TAB PO PRN ×2 (20:30)
[2022-03-08] MEDS ORDERED: LACTULOSE 20 GM/30 ML UDCUP PO PRN (20:30)
[2022-03-08] MEDS ORDERED: MORPHINE 2 MG SYG IV PRN (20:30)
[2022-03-08] MEDS ORDERED: HYDROCODONE/ACETAMINOPHEN 5/325 MG TAB PO PRN (20:30)
[2022-03-08] MEDS ORDERED: LORAZEPAM 2 MG/ML 1 ML VIAL IM PRN (20:30)
[2022-03-08] MEDS ORDERED: INSULIN REGULAR, HUMAN 3ML 100 UNIT in 0.9%NACL 100ML 99 ML IV PRN ×2 (21:00)
[2022-03-09 00:04] LABS: ABG BASE EXCESS -14.4 mmol/L (-2.0-3.0); ABG HCO3 10.3 mmol/L (21.0-28.0); ABG OXYGEN SATURATION 97.4 % (95.0-99.0); ABG PCO2 22 mmHg (35-48)
[2022-03-09 00:51] LABS: CREATININE 1.8 mg/dL (0.5-1.5)
[2022-03-09] MEDS ORDERED: SODIUM BICARB 50MEQ 50ML VIAL IV ONE (01:30)
[2022-03-09] MEDS ORDERED: 0.9%NACL 1000ML 1,000 ML IV SCH (01:30)
[2022-03-09] MEDS ORDERED: HYDROCODONE/ACETAMINOPHEN 5/325 MG TAB PO PRN (02:00)
[2022-03-09] MEDS ORDERED: MAG/ALUM/SIMETH 30 ML UDCUP PO PRN (02:00)
[2022-03-09] MEDS ORDERED: LACTULOSE 20 GM/30 ML UDCUP PO PRN (02:00)
[2022-03-09] MEDS ORDERED: ACETAMINOPHEN 325 MG TAB PO PRN ×2 (02:00)
[2022-03-09] MEDS ORDERED: MORPHINE 4 MG SYG IV PRN (02:00)
[2022-03-09] MEDS ORDERED: ONDANSETRON 4MG INJ IV PRN (02:00)
[2022-03-09] MEDS ORDERED: 0.9%NACL 1000ML 1,000 ML IV ONE (02:00)
[2022-03-09] MEDS ORDERED: D5W-1/2 NS/20MEQ KCL 1,000 ML IV SCH (04:30)
[2022-03-09 04:33] LABS: HEMATOCRIT 35.9 % (42-54); MEAN CORPUSCULAR HEMOGLOBIN 32.3 pg (27.0-33.0); MEAN CORPUSCULAR HGB CONC 33.7 g/dL (32.0-36.0); MEAN CORPUSCULAR VOLUME 95.7 fL (79-99); RED BLOOD CELL COUNT(AUTO) 3.75 MIL/uL (4.50-6.20); RED CELL DISTRIBUTION WIDTH 12.9 % (11.0-15.5); WHITE BLOOD COUNT (AUTO) 6.8 K/uL (4.8-10.8)
[2022-03-09 04:45] LABS: CREATININE 1.6 mg/dL (0.5-1.5); MAGNESIUM 2.3 mg/dL (1.80-2.40); POTASSIUM 3.7 mmol/L (3.5-5.1)
[2022-03-09 04:55] LABS: PHOSPHORUS 3.7 mg/dL (2.5-4.9)
[2022-03-09 05:01] LABS: HEMOGLOBIN A1C 9.3 % (4.0-6.0)
[2022-03-09] MEDS ORDERED: KCL 20 MEQ ERTAB PO PRN (07:30)
[2022-03-09] MEDS ORDERED: POTASSIUM CHLORIDE 20MEQ/100ML 100 ML IV PRN (07:30)
[2022-03-09] MEDS ORDERED: LIDOCAINE HCL-MPF 1% 2ML VIAL IV PRN (07:30)
[2022-03-09] MEDS ORDERED: POTASSIUM CHLORIDE 10% ELIXIR 20 MEQ/15 ML UDCUP PO PRN (07:30)
[2022-03-09 08:17] VITALS: BP 151/79
[2022-03-09] MEDS ORDERED: ENOXAPARIN SODIUM 30 MG/0.3 ML SQ SCH ×2 (09:00)
[2022-03-09] MEDS ORDERED: PANTOPRAZOLE 40 MG/VIAL IVP SCH ×2 (09:00)
[2022-03-09 09:25] VITALS: BP 145/81
[2022-03-09 10:39] LABS: ABG BASE EXCESS -5.5 mmol/L (-2.0-3.0); ABG HCO3 19.1 mmol/L (21.0-28.0); ABG OXYGEN SATURATION 97.3 % (95.0-99.0); ABG PCO2 35 mmHg (35-48)
[2022-03-09 11:20] VITALS: BP 147/77
== END 2022-03-09 11:30 | disposition home or self-care (01) ==
LOC: EDH 15:25 → EDHIP 20:05 → INTOOBSV 20:05 → 2CH 03-09 08:32
PROVIDERS: ADMIT Hospitalist; ATTEND Hospitalist
DX: E11.10 Type 2 diabetes mellitus with ketoacidosis without coma (principal); Z20.822 Contact with and (suspected) exposure to COVID-19; N17.9 Acute kidney failure, unspecified; R11.2 Nausea with vomiting, unspecified; R10.13 Epigastric pain; E78.00 Pure hypercholesterolemia, unspecified; I10 Essential (primary) hypertension; K21.9 Gastro-esophageal reflux disease without esophagitis; Z23 Encounter for immunization; Z79.4 Long term (current) use of insulin; Z79.899 Other long term (current) drug therapy; Z98.890 Other specified postprocedural states; Z71.85 Encounter for immunization safety counseling
CPT/HCPCS: 36415 ×2; 36600 ×3; 80048 ×2; 80053; 81001; 82010; 82435; 82803 ×3; 82947; 82948 ×16; 83036; 83605; 83690; 83735; 83880; 84100; 84132; 84295; 85018; 85025; 85027; 87635; 93005; 96361 ×2; 96372; 96374; 96375; 99285; C9113; G0378; J1650; J1815 ×2; J2405; J3480; J3490; J7030 ×3

== ENCOUNTER 2022-05-11 16:38 | Emergency (ER) | payer OTHER ==
[~2022-05-11] VITALS: Ht 172.7 cm; Wt 80.7 kg
[2022-05-11 16:42] VITALS: BP 115/76
[2022-05-11] MEDS ORDERED: 0.9%NACL 1000ML 1,000 ML IV SCH (17:00)
[2022-05-11] MEDS ORDERED: INSULIN HUMULIN R 100 UNIT/ML 3ML IV ONE (17:00)
[2022-05-11 17:08] LABS: BASOPHILS % (AUTO) 0.2 % (0.0-5.0); HEMATOCRIT 42.2 % (42-54); LYMPHOCYTES % (AUTO) 6.5 % (21.0-51.0); MEAN CORPUSCULAR HEMOGLOBIN 32.6 pg (27.0-33.0); MEAN CORPUSCULAR HGB CONC 33.4 g/dL (32.0-36.0); MEAN CORPUSCULAR VOLUME 97.7 fL (79-99); MONOCYTES % (AUTO) 6.3 % (3.0-13.0); NEUTROPHILS % (AUTO) 86.4 % (40.0-77.0); PLATELET COUNT (AUTO) 220 K/uL (130-400); RED BLOOD CELL COUNT(AUTO) 4.32 MIL/uL (4.50-6.20); RED CELL DISTRIBUTION WIDTH 12.5 % (11.0-15.5); WHITE BLOOD COUNT (AUTO) 10.2 K/uL (4.8-10.8)
[2022-05-11 17:15] LABS: ABG BASE EXCESS -9.4 mmol/L (-2.0-3.0); ABG OXYGEN SATURATION 97.5 % (95.0-99.0); ABG PCO2 22 mmHg (35-48)
[2022-05-11 17:26] LABS: ALBUMIN 3.7 g/dL (3.5-5.0); CREATININE 2.5 mg/dL (0.5-1.5); POTASSIUM 3.6 mmol/L (3.5-5.1); TOTAL PROTEIN, SERUM 7.7 g/dL (6.0-8.3)
[2022-05-11] MEDS ORDERED: THIAMINE HCL 100 MG/ML 2ML VIAL IVP SCH (17:30)
[2022-05-11] MEDS ORDERED: ONDANSETRON 4MG INJ IVP ONE (17:30)
[2022-05-11 17:40] LABS: CRP QUANTITATIVE 21.6 mg/L (0.00-9.0)
[2022-05-11] MEDS ORDERED: ONDA4TAB10 PO (18:42)
[2022-05-12] MEDS ORDERED: M.V.I. IV [ADULT] 10 ML, FOLIC ACID 1 MG, THIAMINE HCL 100 MG in 0.9%NACL 1000ML 1,000 ML IV SCH (09:00)
[2022-05-21] MEDS ORDERED: INSU300I SQ (10:17)
[2022-05-21] MEDS ORDERED: INSU100I15 SQ (10:17)
== END 2022-05-11 18:30 | disposition home or self-care (01) ==
LOC: EDH 16:38
DX: E11.65 Type 2 diabetes mellitus with hyperglycemia (principal); N28.9 Disorder of kidney and ureter, unspecified; E86.0 Dehydration; E78.00 Pure hypercholesterolemia, unspecified; I10 Essential (primary) hypertension; Z79.899 Other long term (current) drug therapy; Z88.1 Allergy status to other antibiotic agents; Z91.14 Patient's other noncompliance with medication regimen
CPT/HCPCS: 99284; 96365; 71045; 96375; 80053; 82803; 85025; 82948; 82010; 86140; 36415; 36600; J3411; J2405; J3490; J7030

== ENCOUNTER 2022-05-15 20:30 | Emergency (ER) | payer OTHER ==
[~2022-05-15] VITALS: Ht 172.7 cm; Wt 77.1 kg
[~2022-05-15 20:30] MED LIST changes: +ONDA4TAB10 PO
[2022-05-15] MEDS ORDERED: MAG/ALUM/SIMETH 30 ML UDCUP PO ONE (21:00)
[2022-05-15] MEDS ORDERED: ONDANSETRON 4MG INJ IVP ONE (21:00)
[2022-05-15] MEDS ORDERED: LIDOCAINE HCL 2% VISCOUS 15 ML UDCUP PO ONE (21:00)
[2022-05-15] MEDS ORDERED: FAMOTIDINE 20MG VIAL IV ONE (21:00)
[2022-05-15] MEDS ORDERED: DICYCLOMINE HCL 10 MG/5 ML ML PO ONE (21:00)
[2022-05-15] MEDS ORDERED: 0.9%NACL 1000ML 1,000 ML IV SCH (21:00)
[2022-05-15 21:10] LABS: BASOPHILS % (AUTO) 0.2 % (0.0-5.0); EOSINOPHILS % (AUTO) 0.5 % (0.0-8.0); HEMATOCRIT 40.7 % (42-54); LYMPHOCYTES % (AUTO) 14.9 % (21.0-51.0); MEAN CORPUSCULAR HEMOGLOBIN 32.8 pg (27.0-33.0); MEAN CORPUSCULAR HGB CONC 34.6 g/dL (32.0-36.0); MEAN CORPUSCULAR VOLUME 94.7 fL (79-99); MONOCYTES % (AUTO) 9.6 % (3.0-13.0); NEUTROPHILS % (AUTO) 74.1 % (40.0-77.0); PLATELET COUNT (AUTO) 183 K/uL (130-400); RED CELL DISTRIBUTION WIDTH 11.9 % (11.0-15.5); WHITE BLOOD COUNT (AUTO) 8.3 K/uL (4.8-10.8)
[2022-05-15 21:13] LABS: CREATININE 1.7 mg/dL (0.5-1.5); POTASSIUM 3.6 mmol/L (3.5-5.1)
[2022-05-15 21:24] LABS: ALBUMIN 3.6 g/dL (3.5-5.0); TOTAL PROTEIN, SERUM 7.7 g/dL (6.0-8.3)
[2022-05-15 21:27] LABS: ALCOHOL, BLOOD < 3 mg/dL (0-10); LIPASE 63 U/L (114-286)
[2022-05-15] MEDS ORDERED: ONDA4TAB10 PO (22:08)
[2022-05-15] MEDS ORDERED: FAMO-136 PO (22:08)
[2022-05-15] MEDS ORDERED: DICY20TA2 PO (22:08)
[2022-05-15 22:19] VITALS: BP 141/97
[2022-05-15 22:26] LABS: APPEARANCE,URINE CLEAR (CLEAR); BILIRUBIN,URINE MODERATE (NEGATIVE); COLOR,URINE YELLOW (YELLOW); GLUCOSE, URINE (UA) 500 mg/dL (NEGATIVE); KETONES,URINE >=80 mg/dL (NEGATIVE); LEUKOCYTE ESTERASE ,URINE NEGATIVE (NEGATIVE); NITRATE,URINE NEGATIVE (NEGATIVE); OCCULT BLOOD,URINE NEGATIVE (NEGATIVE); PROTEIN,URINE NEGATIVE (NEGATIVE); UROBILINOGEN,URINE 0.2 mg/dL (0.2-1.0)
[2022-05-15 22:52] LABS: AMPHET/METH SCREEN,URINE NEGATIVE (NEGATIVE); BARBITURATE SCREEN, URINE NEGATIVE (NEGATIVE); BENZODIAZEPINES SCREEN,URINE NEGATIVE (NEGATIVE); CANNABINOID SCREEN,URINE NEGATIVE (NEGATIVE); COCAINE SCREEN,URINE NEGATIVE (NEGATIVE); PHENCYCLIDINE SCREEN,URINE NEGATIVE (NEGATIVE)
[2022-05-15 22:57] LABS: BACTERIA,URINE None Seen /HPF (None Seen); RBC,URINE None Seen /HPF (0-1); WBC,URINE None Seen /HPF (0-1)
== END 2022-05-15 22:27 | disposition home or self-care (01) ==
LOC: EDH 20:30
DX: K29.70 Gastritis, unspecified, without bleeding (principal); E86.0 Dehydration; N28.9 Disorder of kidney and ureter, unspecified; E11.65 Type 2 diabetes mellitus with hyperglycemia; E78.00 Pure hypercholesterolemia, unspecified; I10 Essential (primary) hypertension; Z79.899 Other long term (current) drug therapy; Z88.1 Allergy status to other antibiotic agents
CPT/HCPCS: 99285; 74176; 96374; 96361; 96375; 84484; 80053; 80305; 83690; 85025; 36415; 93005; 81001; J3490; J7030; J2405

== ENCOUNTER 2023-02-11 10:56 | Inpatient (IN) | payer BC, OTHER ==
[2023-02-11] VITALS (22 sets, daily range): BP systolic 102–149; BP diastolic 59–88
[~2023-02-11] VITALS: Ht 170.2 cm; Wt 77.1 kg
[~2023-02-11 10:56] MED LIST changes: -ATOR40TA69 PO; -ESOM20CA34 PO; +FAMO-136 PO; -INSU100I15 SQ; -INSU300I SQ; +PRAV40TA3 PO
[2023-02-11 11:44] LABS: BASOPHILS % (AUTO) 0.3 % (0.0-5.0); EOSINOPHILS % (AUTO) 0.3 % (0.0-8.0); HEMATOCRIT 39.8 % (42-54); LYMPHOCYTES % (AUTO) 11.5 % (21.0-51.0); MEAN CORPUSCULAR HEMOGLOBIN 31.9 pg (27.0-33.0); MEAN CORPUSCULAR HGB CONC 30.4 g/dL (32.0-36.0); MONOCYTES % (AUTO) 6.2 % (3.0-13.0); NEUTROPHILS % (AUTO) 80.5 % (40.0-77.0); PLATELET COUNT (AUTO) 226 K/uL (130-400); RED BLOOD CELL COUNT(AUTO) 3.79 MIL/uL (4.50-6.20); RED CELL DISTRIBUTION WIDTH 13.7 % (11.0-15.5); WHITE BLOOD COUNT (AUTO) 15.2 K/uL (4.8-10.8)
[2023-02-11] MEDS ORDERED: INSULIN HUMULIN R 100 UNIT/ML 3ML SQ ONE ×2 (12:00→17:00)
[2023-02-11] MEDS ORDERED: 0.9%NACL 1000ML 1,983 ML IV ONE (12:00)
[2023-02-11 12:07] LABS: ALANINE AMINOTRANSFERASE 55 U/L (12-78); ALBUMIN 3.4 g/dL (3.5-5.0); ASPARTATE AMINOTRANSFERASE 26 U/L (10-37); CREATININE 2.5 mg/dL (0.5-1.5); GLOMERULAR FILTR. RATE CALC 28 mL/min (>90); TOTAL PROTEIN, SERUM 6.7 g/dL (6.0-8.3); UREA NITROGEN, BLOOD 30 mg/dL (7-18)
[2023-02-11] MEDS ORDERED: 0.9%NACL 1000ML 1,000 ML IV SCH (13:00)
[2023-02-11] MEDS ORDERED: ACETAMINOPHEN 325 MG TAB PO PRN (13:00)
[2023-02-11] MEDS ORDERED: POTASSIUM CHLORIDE 10MEQ/100ML 100 ML IV PRN (13:00)
[2023-02-11] MEDS ORDERED: MAGNESIUM 2GM PREMIX 50ML 50 ML IV SCH (13:00)
[2023-02-11 13:01] LABS: SODIUM SERUM 128 mmol/L (136-145)
[2023-02-11 13:07] LABS: CARBON DIOXIDE 6 mmol/L (21-32); CHLORIDE 80 mmol/L (101-111); GLUCOSE,RANDOM 1045 mg/dL (70-105)
[2023-02-11] MEDS ORDERED: LEVOFLOXACIN 750 MG/D5W 150ML BAG IVPB SCH (13:30)
[2023-02-11] MEDS ORDERED: IPRATROPIUM/ALBUTEROL SULFATE 3 ML SOLUTION IH PRN (13:30)
[2023-02-11] MEDS: INSULIN REGULAR, HUMAN 3ML 100 UNIT in 0.9%NACL 100ML 99 ML IV PRN ×2 (13:33)
[2023-02-11 13:41] LABS: ABG BASE EXCESS -29.4 mmol/L (-2.0-3.0); ABG HCO3 2.9 mmol/L (21.0-28.0); ABG OXYGEN SATURATION 96.7 % (95.0-99.0); ABG PCO2 16 mmHg (35-48)
[2023-02-11 13:48] LABS: INR 1.11 (0.85-1.15)
[2023-02-11 13:59] LABS: HEMOGLOBIN A1C 8.7 % (4.0-6.0)
[2023-02-11] MEDS ORDERED: LACTATED RINGERS 1000ML IV SCH ×4 (14:00→17:30)
[2023-02-11] MEDS ORDERED: NOREPINEPHRIN 4MG/NS 250ML 250 ML IV SCH (15:00)
[2023-02-11 15:15] LABS: CREATININE 2.8 mg/dL (0.5-1.5); POTASSIUM 4.7 mmol/L (3.5-5.1)
[2023-02-11 15:23] LABS: THYROID STIMULATING HORMONE 1.91 uIU/mL (0.36-3.74)
[2023-02-11 15:38] LABS: PHOSPHORUS 10.7 mg/dL (2.5-4.9)
[2023-02-11 16:29] LABS: CREATININE,URINE RANDOM 40 mg/dL (30-135); POTASSIUM,URINE RANDOM 35 mmol/L (25-125); SODIUM,URINE RANDOM < 14 mmol/l (40-220)
[2023-02-11 16:45] LABS: APPEARANCE,URINE CLEAR (CLEAR); BILIRUBIN,URINE NEGATIVE (NEGATIVE); COLOR,URINE LIGHT-YELLOW (YELLOW); GLUCOSE, URINE (UA) >=1000 mg/dL (NEGATIVE); KETONES,URINE 100 mg/dL (NEGATIVE); LEUKOCYTE ESTERASE ,URINE NEGATIVE Leu/uL (NEGATIVE); NITRATE,URINE NEGATIVE (NEGATIVE); OCCULT BLOOD,URINE NEGATIVE (NEGATIVE); PROTEIN,URINE NEGATIVE (NEGATIVE); UROBILINOGEN,URINE 0.2 mg/dL (0.2-1.0)
[2023-02-11 16:49] LABS: MAGNESIUM 2.6 mg/dL (1.80-2.40)
[2023-02-11 16:49] LABS: BACTERIA,URINE FEW /HPF (None Seen); MUCUS,URINE RARE LPF (None Seen); SQUAMOUS EPITHELIAL CELL,UR RARE /HPF (0-2)
[2023-02-11] MEDS: ZOSYN 3.375GM +NS 50ML IVPB SCH (17:18)
[2023-02-11] MEDS ORDERED: PHARMACY COMMUNICATION MISC SCH (18:00)
[2023-02-11] MEDS ORDERED: NS-20 MEQ KCL 1000ML 1,000 ML IV SCH (18:00)
[2023-02-11 19:40] LABS: CREATININE 2.5 mg/dL (0.5-1.5); PHOSPHORUS 5.9 mg/dL (2.5-4.9); POTASSIUM 4.3 mmol/L (3.5-5.1)
[2023-02-11] MEDS: D5W-1/2 NS/20MEQ KCL 1,000 ML IV SCH (21:27)
[2023-02-11] MEDS ORDERED: ONDANSETRON 4MG INJ IVP PRN (23:30)
[2023-02-11] MEDS ORDERED: FAMOTIDINE 20MG VIAL IV ONE (23:33)
[2023-02-11] MEDS ORDERED: ONDANSETRON 4MG INJ ONE (23:33)
[2023-02-11 23:34] LABS: CREATININE 1.9 mg/dL (0.5-1.5); PHOSPHORUS 2.4 mg/dL (2.5-4.9); POTASSIUM 3.9 mmol/L (3.5-5.1)
[2023-02-12] VITALS (32 sets, daily range): BP systolic 120–162; BP diastolic 48–104
[2023-02-12] MEDS: FAMOTIDINE 20MG VIAL IV SCH ×3 (00:15→21:40)
[2023-02-12 02:03] LABS: CREATININE 1.8 mg/dL (0.5-1.5); PHOSPHORUS 2.5 mg/dL (2.5-4.9); POTASSIUM 3.9 mmol/L (3.5-5.1); URIC ACID 6.6 mg/dL (2.6-7.2)
[2023-02-12 02:10] LABS: ABG BASE EXCESS -1.1 mmol/L (-2.0-3.0); ABG HCO3 21.5 mmol/L (21.0-28.0); ABG OXYGEN SATURATION 97.7 % (95.0-99.0); ABG PCO2 31 mmHg (35-48)
[2023-02-12] MEDS: D5W-1/2 NS/20MEQ KCL 1,000 ML IV SCH (03:02)
[2023-02-12] MEDS: INSULIN REGULAR, HUMAN 3ML 100 UNIT in 0.9%NACL 100ML 99 ML IV PRN ×2 (03:07)
[2023-02-12 05:44] LABS: BASOPHILS % (AUTO) 0.1 % (0.0-5.0); HEMATOCRIT 31.9 % (42-54); LYMPHOCYTES % (AUTO) 8.7 % (21.0-51.0); MEAN CORPUSCULAR HEMOGLOBIN 31.6 pg (27.0-33.0); MEAN CORPUSCULAR HGB CONC 33.5 g/dL (32.0-36.0); MEAN CORPUSCULAR VOLUME 94.1 fL (79-99); MONOCYTES % (AUTO) 9.3 % (3.0-13.0); NEUTROPHILS % (AUTO) 81.4 % (40.0-77.0); PLATELET COUNT (AUTO) 160 K/uL (130-400); RED BLOOD CELL COUNT(AUTO) 3.39 MIL/uL (4.50-6.20); RED CELL DISTRIBUTION WIDTH 13.3 % (11.0-15.5)
[2023-02-12 05:52] LABS: CREATININE 1.6 mg/dL (0.5-1.5); MAGNESIUM 1.8 mg/dL (1.80-2.40); POTASSIUM 3.9 mmol/L (3.5-5.1)
[2023-02-12] MEDS: ZOSYN 3.375GM +NS 50ML IVPB SCH ×2 (07:50→17:23)
[2023-02-12] MEDS ORDERED: INSULIN GLARGINE 100 UNITS/ML 10 ML VIAL SQ SCH (09:00)
[2023-02-12] MEDS: INSULIN HUMULIN R 100 UNIT/ML 3ML SQ SCH ×4 (12:14→21:00)
[2023-02-13] VITALS (7 sets, daily range): BP systolic 129–158; BP diastolic 79–95
[2023-02-13 04:43] LABS: HEMATOCRIT 34.2 % (42-54); MEAN CORPUSCULAR HEMOGLOBIN 31.8 pg (27.0-33.0); MEAN CORPUSCULAR HGB CONC 34.2 g/dL (32.0-36.0); MEAN CORPUSCULAR VOLUME 92.9 fL (79-99); RED BLOOD CELL COUNT(AUTO) 3.68 MIL/uL (4.50-6.20); RED CELL DISTRIBUTION WIDTH 13.1 % (11.0-15.5); WHITE BLOOD COUNT (AUTO) 6.5 K/uL (4.8-10.8)
[2023-02-13] MEDS: ZOSYN 3.375GM +NS 50ML IVPB SCH (04:46)
[2023-02-13 05:05] LABS: MAGNESIUM 1.7 mg/dL (1.80-2.40); PHOSPHORUS 3.5 mg/dL (2.5-4.9); TOTAL PROTEIN, SERUM 6.1 g/dL (6.0-8.3)
[2023-02-13] MEDS: KCL 20 MEQ ERTAB PO PRN ×3 (05:58→09:14)
[2023-02-13] MEDS ORDERED: POTASSIUM CHLORIDE 10% ELIXIR 20 MEQ/15 ML UDCUP PO PRN (06:00)
[2023-02-13] MEDS: INSULIN HUMULIN R 100 UNIT/ML 3ML SQ SCH ×7 (07:39→20:58)
[2023-02-13] MEDS: FAMOTIDINE 20MG VIAL IV SCH ×2 (09:12→20:50)
[2023-02-13] MEDS: INSULIN GLARGINE 100 UNITS/ML 10 ML VIAL SQ SCH (09:14)
[2023-02-13] MEDS ORDERED: 0.9%NACL 1000ML 1,000 ML IV ONE (09:30)
[2023-02-13] MEDS ORDERED: MAGNESIUM 2GM PREMIX 50ML 50 ML IV PRN (11:00)
[2023-02-13 15:08] LABS: MAGNESIUM 2.9 mg/dL (1.80-2.40)
[2023-02-13] MEDS: METOPROLOL TARTRATE 25 MG TAB PO SCH (20:50)
[2023-02-13] MEDS ORDERED: AMLODIPINE 5 MG TAB PO SCH (21:00)
[2023-02-13] MEDS ORDERED: ENOXAPARIN SODIUM 30 MG/0.3 ML SQ SCH (21:00)
[2023-02-13] MEDS ORDERED: ATORVASTATIN 10 MG TABLET PO SCH (21:00)
[2023-02-13 23:48] LABS: SODIUM TIMED URINE 80; TOTAL VOLUME URINE 24HR 3200ML; URINE COLLECTION PERIOD 24H
[2023-02-13 23:49] LABS: SODIUM URINE 24HR CALCULATION 256
[2023-02-14] VITALS: BP 143/74
[2023-02-14 04:00] VITALS: BP 129/81
[2023-02-14 04:28] LABS: HEMATOCRIT 33.9 % (42-54); MEAN CORPUSCULAR HEMOGLOBIN 31.6 pg (27.0-33.0); MEAN CORPUSCULAR HGB CONC 33.9 g/dL (32.0-36.0); MEAN CORPUSCULAR VOLUME 93.1 fL (79-99); RED BLOOD CELL COUNT(AUTO) 3.64 MIL/uL (4.50-6.20); RED CELL DISTRIBUTION WIDTH 12.9 % (11.0-15.5); WHITE BLOOD COUNT (AUTO) 5.9 K/uL (4.8-10.8)
[2023-02-14 05:00] LABS: CREATININE 0.9 mg/dL (0.5-1.5); MAGNESIUM 2.3 mg/dL (1.80-2.40); PHOSPHORUS 3.5 mg/dL (2.5-4.9); POTASSIUM 3.3 mmol/L (3.5-5.1)
[2023-02-14] MEDS: KCL 20 MEQ ERTAB PO PRN ×2 (06:09→09:25)
[2023-02-14] MEDS: INSULIN HUMULIN R 100 UNIT/ML 3ML SQ SCH ×4 (06:10→12:41)
[2023-02-14 08:00] VITALS: BP 101/68
[2023-02-14] MEDS ORDERED: AMLODIPINE 5 MG TAB PO SCH (09:00)
[2023-02-14] MEDS: METOPROLOL TARTRATE 25 MG TAB PO SCH (09:25)
[2023-02-14] MEDS: FAMOTIDINE 20MG VIAL IV SCH (09:25)
[2023-02-14] MEDS: INSULIN GLARGINE 100 UNITS/ML 10 ML VIAL SQ SCH (09:27)
[2023-02-14] MEDS ORDERED: INSU300I3 SQ (11:15)
[2023-02-14] MEDS ORDERED: INSU100I15 SQ (11:15)
[2023-02-14 12:00] VITALS: BP 105/68
== END 2023-02-14 15:24 | disposition home or self-care (01) | DRG 637 ==
LOC: EDH 10:56 → EDHIP 12:51 → 2CV 16:22 → 4CH 02-12 14:12
PROVIDERS: ADMIT Internal Medicine; ATTEND Internal Medicine
DX: E10.10 Type 1 diabetes mellitus with ketoacidosis without coma (principal); G93.41 Metabolic encephalopathy; N17.9 Acute kidney failure, unspecified; E87.0 Hyperosmolality and hypernatremia; E72.4 Disorders of ornithine metabolism; R57.9 Shock, unspecified; Z20.822 Contact with and (suspected) exposure to COVID-19; E86.0 Dehydration; E10.22 Type 1 diabetes mellitus with diabetic chronic kidney disease; D69.6 Thrombocytopenia, unspecified; D64.9 Anemia, unspecified; E78.00 Pure hypercholesterolemia, unspecified; E10.65 Type 1 diabetes mellitus with hyperglycemia; N18.9 Chronic kidney disease, unspecified; I12.9 Hypertensive chronic kidney disease with stage 1 through stage 4 chronic kidney disease, or unspecified chronic kidney disease; I25.10 Atherosclerotic heart disease of native coronary artery without angina pectoris; K21.9 Gastro-esophageal reflux disease without esophagitis; E87.5 Hyperkalemia; F10.10 Alcohol abuse, uncomplicated; Y90.9 Presence of alcohol in blood, level not specified; E86.1 Hypovolemia; Z91.199 Patient's noncompliance with other medical treatment and regimen due to unspecified reason; Z79.4 Long term (current) use of insulin; Z82.49 Family history of ischemic heart disease and other diseases of the circulatory system; Z83.3 Family history of diabetes mellitus; Z82.0 Family history of epilepsy and other diseases of the nervous system; Z82.3 Family history of stroke; Z82.5 Family history of asthma and other chronic lower respiratory diseases
CPT/HCPCS: 36415; 36600; 71045; 76770; 80048; 80053; 80061; 81001; 82010; 82140; 82435; 82550; 82570; 82803; 82947; 82948; 83036; 83605; 83690; 83735; 83935; 84100; 84132; 84133; 84145; 84295; 84300; 84443; 84484; 84540; 84550; 85018; 85025; 85027; 85610; 85651; 85730; 86140; 87040; 87088; 87635; 87804; 93005; G0378; J1650; J1815; J1956; J2405; J2543; J3475; J3480; J3490; J7120

== ENCOUNTER 2023-11-12 19:15 | Emergency (ER) | payer BC ==
[~2023-11-12] VITALS: Ht 172.7 cm; Wt 79.4 kg
[~2023-11-12 19:15] MED LIST changes: +INSU100I15 SQ; +INSU300I3 SQ
[2023-11-12 20:20] LABS: BASOPHILS # (AUTO) 0.02 K/uL (0.00-0.20); BASOPHILS % (AUTO) 0.2 % (0.0-5.0); EOSINOPHILS # (AUTO) 0.07 K/uL (0.00-0.70); EOSINOPHILS % (AUTO) 0.8 % (0.0-8.0); HEMATOCRIT 42.8 % (42-54); IMMATURE GRANULOCYTE ABSOLUTE 0.03 K/uL (0-1); LYMPHOCYTES # (AUTO) 0.7 K/uL (1.0-4.8); LYMPHOCYTES % (AUTO) 8.7 % (21.0-51.0); MEAN CORPUSCULAR HGB CONC 34.3 g/dL (32.0-36.0); MONOCYTES # (AUTO) 0.8 K/uL (0.1-1.0); NEUTROPHILS # (AUTO) 6.7 K/uL (1.8-7.7); NEUTROPHILS % (AUTO) 80.9 % (40.0-77.0); PLATELET COUNT (AUTO) 156 K/uL (130-400); RED CELL DISTRIBUTION WIDTH 12.9 % (11.0-15.5); WHITE BLOOD COUNT (AUTO) 8.3 K/uL (4.8-10.8)
[2023-11-12 20:38] LABS: ALBUMIN 3.9 g/dL (3.5-5.0); BILIRUBIN,TOTAL 1.1 mg/dL (0.2-1.0); CREATININE 1.3 mg/dL (0.5-1.5); TOTAL PROTEIN, SERUM 7.7 g/dL (6.0-8.3)
[2023-11-12 22:36] VITALS: BP 130/73; PULSE 75; RESP 16; O2SAT 98
[2023-11-12 22:53] LABS: ADD UA MICROSCOPIC YES; APPEARANCE,URINE CLEAR (CLEAR); BILIRUBIN,URINE NEGATIVE (NEGATIVE); COLOR,URINE LIGHT-YELLOW (YELLOW); GLUCOSE, URINE (UA) >=1000 mg/dL (NEGATIVE); KETONES,URINE 5 mg/dL (NEGATIVE); LEUKOCYTE ESTERASE ,URINE NEGATIVE Leu/uL (NEGATIVE); NITRATE,URINE NEGATIVE (NEGATIVE); OCCULT BLOOD,URINE NEGATIVE (NEGATIVE); PROTEIN,URINE NEGATIVE (NEGATIVE); UROBILINOGEN,URINE 0.2 mg/dL (0.2-1.0)
[2023-11-12 22:59] LABS: MUCUS,URINE RARE LPF (None Seen); WBC,URINE 0-1 /HPF (0-1)
== END 2023-11-12 23:49 | disposition home or self-care (01) ==
LOC: EDH 19:15
DX: E11.649 Type 2 diabetes mellitus with hypoglycemia without coma (principal); I10 Essential (primary) hypertension; E78.00 Pure hypercholesterolemia, unspecified; Z79.899 Other long term (current) drug therapy; Z98.890 Other specified postprocedural states; Z88.8 Allergy status to other drugs, medicaments and biological substances
CPT/HCPCS: 36415; 80053; 81001; 82948; 84484; 85025; 93005

== ENCOUNTER 2024-07-28 11:57 | Emergency (ER) | payer BC ==
[~2024-07-28] VITALS: Ht 170.2 cm; Wt 76.2 kg
[~2024-07-28 11:57] MED LIST changes: -AMLO1CAP6 PO; -FAMO-136 PO; -INSU100I15 SQ; +INSU100I35 SQ; +LEVO750T40 PO; -METO25 PO; -ONDA4TAB10 PO; -PRAV40TA3 PO
[2024-07-28 11:59] VITALS: TEMP 98
--- NOTE | 2024-07-28 12:05 | NUR ---
REMOVE THE C-COLLAR BY DR. GREEN
--- NOTE | 2024-07-28 13:51 | HMCIMG ---
RIGHT SHOULDER RADIOGRAPHS - 2-3 VIEWS INDICATION: Pain COMPARISON: None FINDINGS: No fracture or dislocation identified. Acromioclavicular and glenohumeral alignments are well maintained. Visible portions of the right clavicle are intact. Mild arterial wall calcific plaque. IMPRESSION: No evidence for fracture or dislocation.
--- NOTE | 2024-07-28 13:53 | HMCIMG ---
THORACIC SPINE RADIOGRAPHS - 3 VIEWS INDICATION: Back pain COMPARISON: None FINDINGS: AP lateral and swimmer's views No acute fracture or subluxation identified. Vertebral body heights and disc spaces are well-maintained. Multilevel mild anterior endplate osteophytic spurring. IMPRESSION: No acute fracture or subluxation noted.
[2024-07-28] MEDS ORDERED: NAPR-1505 PO (14:03)
--- NOTE | 2024-07-28 14:03 | ERN ---
General Chief Complaint: Mechanical Fall Stated Complaint: FALL Time Seen by MD: 11:59 Source: patient History of Present Illness Initial Comments PATIENT IS A 62-YEAR-OLD MALE COMING IN TO BE EVALUATED AFTER HE HAD A MECHANICAL FALL EARLIER TODAY. PER PATIENT HE WAS WALKING AND TRIPPED WITH THE CORNER OF A BED AND THEN THAT ON HIS BACK. Allergies: Coded Allergies: cephalexin (Unverified Allergy, Mild, SWELLING, 12/31/14) Home Meds Active Scripts Levofloxacin (Levofloxacin) 750 Mg Tablet, 1 TAB PO DAILY for 7 Days, #7 TAB 0 Refills Prov:MICHAEL ALFREDO ECONOMIC GEOGRAPHER 06/28/24 Insulin Glargine,Hum.rec.anlog (Toujeo Max Solostar) 300 Unit/1 Ml Insuln.pen, 40 UNIT SQ AM for 30 Days, #2 SYRINGE Prov:MICHAEL ACEVEDO ECONOMIC GEOGRAPHER 02/14/23 Reported Medications Insulin NPH Hum/Reg Insulin Hm (Novolin 70-30 Flexpen) 100 Unit/Ml (70-30) Insuln.pen, 28 UNIT SQ ACBKFST, SYRINGE 06/27/24 Past Medical History Past Medical History: Diabetes-Type II, Hypertension Medical History Other: DKA Past Surgical History: Other Surgical History Other: UMBILICAL HERNIA REPAIR Family History Family History: DM, HTN Social History Social History: ETOH, Lives with family, Other ROS Dictation CONSTITUTIONAL: NO CHILLS, NO FEVER, NO WEAKNESS, NO DIAPHORESIS, NO MALAISE. HEAD/FACE: NO SIGNS OF TRAUMA. EENT: NO EYE PAIN, NO BLURRED VISION, NO TEARING, NO DOUBLE VISION, NO EAR PAIN, NO EAR DISCHARGE, NO NOSE PAIN, NO NASAL CONGESTION, NO THROAT PAIN, NO THROAT SWELLING, NO MOUTH PAIN. RESPIRATORY: NO COUGH, NO ORTHOPNEA, NO SOB, NO STRIDOR, NO WHEEZING. CARDIOVASCULAR: NO CHEST PAIN, NO EDEMA, NO PALPITATIONS, NO SYNCOPE. GASTROINTESTINAL/ABDOMINAL: NO ABDOMINAL PAIN, NO CONSTIPATION, NO DIARRHEA, NO NAUSEA, NO VOMITING. GENITOURINARY: NO ABNORMAL DISCHARGE, NO DYSURIA, NO FREQUENT URINATION, NO HEMATURIA. NO COMPLAINTS OF PAIN IN THE GENITALS. MUSCULOSKELETAL: BACK PAIN, NO GOUT, NO JOINT PAIN, NO JOINT SWELLING, NO MUSCLE PAIN, NO MUSCLE STIFFNESS, NO NECK PAIN. INTEGUMENTARY: NO CHANGE IN COLOR, NO CHANGE IN HAIR/NAILS, NO DRYNESS, NO LESION, NO LUMPS, NO RASH. NEUROLOGICAL/PSYCH: NO ANXIETY, NOT DEPRESSED, NO EMOTIONAL PROBLEM, NO HEADACHE, NO NUMBNESS, NO PRE-EXISTING DEFICIT, NO HISTORY OF SEIZURES, NO TREMORS, NO WEAKNESS. HEMATOLOGIC/LYMPHATIC: NOT ANEMIC, NO HISTORY OF BLOOD CLOTS, NO APPARENT BLEEDING, NO BRUISING, GLANDS NOT SWOLLEN. ALL SYSTEMS NEGATIVE, EXCEPT NOTED. Physical Exam Physical Exam Dictation VITAL SIGNS: REVIEWED. GENERAL APPEARANCE: ALERT, ORIENTED X3, NO ACUTE DISTRESS, OBESE. HEAD AND FACE: NON-TRAUMATIC. EYES: PERRL, PINK CONJUNCTIVAS, EYELID NO TRAUMA, ANTERIOR CHAMBER CLEAR. EARS: PINNAS INTACT AND NO SIGNS OF TRAUMA OR ERYTHEMA. EAR CANALS CLEAR AND NO DISCHARGE. TMS NO ERYTHEMA. NOSE: NO DISCHARGE, NO BLEEDING. OROPHARYNX: MOUTH NORMAL, TEETH NO CARIES, TONGUE PINK. PHARYNX CLEAR, NO ERYTHEMA. TONSILS NO EXUDATES, NO ABSCESSES NOTED. MUCOUS MEMBRANE MOIST. NECK: SUPPLE, NON-TENDER, NO THYROMEGALY, NO MASSES, NO JVD, NO BRUITS. BREAST: DEFERRED. CHEST: NO TENDERNESS, NO CREPITUS, NO PARADOXICAL MOVEMENT, NO RETRACTIONS. LUNGS: CLEAR, WELL-VENTILATED, SYMMETRIC, NO RALES, NO WHEEZING, NO RHONCHI, NO STRIDOR, GOOD BREATH SOUNDS BILATERALLY. HEART: REGULAR RATE, REGULAR RHYTHM, NO MURMUR, NO GALLOPS. VASCULAR: NO PERIPHERAL EDEMA. ABDOMEN: SOFT, POSITIVE BOWEL SOUNDS, NONDISTENDED, NO GUARDING, NONTENDER, NO REBOUND, NO MASSES NO HEPATOMEGALY, NO SPLENOMEGALY, NO LEWIS'S SIGN, NO HERNIAS. RECTAL: DEFERRED. GENITAL: DEFERRED. NEUROLOGICAL: NORMAL SPEECH, GROSS MOTOR FUNCTION INTACT, GROSS SENSORY FUNCTION INTACT. MUSCULOSKELETAL: NECK NONTENDER, FULL RANGE OF MOTION, SHOE POLISHER, FULL RANGE OF MOTION. EXTREMITIES: NONTENDER, FULL RANGE OF MOTION. SKIN: COLOR PINK, DRY, NO TURGOR, NO RASH, NO LACERATIONS, NO ABRASIONS, NO CONTUSIONS. LYMPHATICS: DEFERRED. Results Laboratory and Microbiology Labs Reviewed?: Yes EKG/XRAY/US/CT/MRI X-RAY Comment [address] [place] [address] [id number] IMAGING REPORT Signed PATIENT: DAVID MARIA MR#: [id number] : 1960 SEX: M AGE: 63 LOCATION: EDH ORDER 06 STATUS: REG ER REPORT#: [id number] SERVICE 05 REASON: FALL ORDERING PHYSICIAN: DELMI GREEN MD PROCEDURE: THOR 2VW - THORACIC SPINE 2VWS THORACIC SPINE RADIOGRAPHS - 3 VIEWS INDICATION: Back pain COMPARISON: None FINDINGS: AP lateral and swimmer's views No acute fracture or subluxation identified. Vertebral body heights and disc spaces are well-maintained. Multilevel mild anterior endplate osteophytic spurring. IMPRESSION: No acute fracture or subluxation noted. DICTATED BY: CHARLINE JENNINGS MD DATE: 07/28/241349 ELECTRONICALLY SIGNED BY: CHARLINE JENNINGS MD DATE: 07/28/24 [address] [place] [address] IMAGING REPORT Signed PATIENT: DAVID MARIA MR#: [id number] : 1960 SEX: M AGE: 63 LOCATION: ED ORDER 06 STATUS: REG ER [facility] REPORT#: [id number] SERVICE 05 REASON: FALL ORDERING PHYSICIAN: DELMI GREEN MD PROCEDURE: SHOL 2V RT - SHOULDER COMP 2+VWS RT RIGHT SHOULDER RADIOGRAPHS - 2-3 VIEWS INDICATION: Pain COMPARISON: None FINDINGS: No fracture or dislocation identified. Acromioclavicular and glenohumeral alignments are well maintained. Visible portions of the right clavicle are intact. Mild arterial wall calcific plaque. IMPRESSION: No evidence for fracture or dislocation. DICTATED BY: CHARLINE JENNINGS MD DATE: 07/28/248 ELECTRONICALLY SIGNED BY: CHARLINE JENNINGS MD DATE: 07/28/24 [address] [facility] MDM: DIFFERENTIAL DIAGNOSIS: MECHANICAL FALL, SHOULDER STRAIN PATIENT IS A 63-YEAR-OLD MALE COMING IN TO BE EVALUATED AFTER HE HAD A MECHANICAL FALL EARLIER TODAY. PER PATIENT HE WAS WALKING TRIPPED ON A BED AND LANDED IN HIS BACK. X-RAYS DID NOT DISCLOSE ACUTE FINDINGS. I ADVISED HIM AP PROPRIATE FOLLOW UP WITH PCP IN 1-2 DAYS AND CONTINUE TAKING MEDICATION PROVIDED FOR PAIN RELIEF. ED Course Orders Procedure Category Date Status Time Thoracic Spine 2vws RAD 07/28/24 Resulted 12:06 Shoulder Comp 2+Vws Rt RAD 07/28/24 Resulted 12:06 Vital Signs Date Time Temp Pulse Resp B/P (MAP) Pulse Ox O2 Delivery O2 Flow Rate FiO2 07/28/24 11:59 98.1 84 18 179/89 0 Room Air DX & DISP Disposition: Discharge Departure Impression: Primary Impression: Accident due to mechanical fall without injury Condition: Stable Scripts Naproxen (Naproxen) 375 Mg Tablet. 375 MG PO BID for 7 Days, #14 TAB Prov: DELMI GREEN MD 07/28/24 Additional Instructions: FOLLOW-UP WITH PRIMARY CARE PROVIDER IN 1 TO 2 DAYS. TAKE MEDICATIONS DIRECTED HERE IN THE EMERGENCY ROOM. OKAY TO CONTINUE HOME MEDICATIONS UNLESS OTHERWISE DISCUSSED DURING YOUR VISIT IN THE EMERGENCY ROOM TODAY. RETURN TO YOUR NEAREST EMERGENCY ROOM IF SYMPTOMS WORSEN OR IF THERE IS NO IMPROVEMENT. CALL 911 IF YOU NEED IMMEDIATE ASSISTANCE. TAKE TYLENOL [id number] NEEDED AND IF NO CONTRAINDICATIONS ARE PRESENT. INCREASE ORAL HYDRATION. A WOUND CULTURE OR URINE CULTURE WAS ORDERED HERE IN THE EMERGENCY ROOM DEPARTMENT PLEASE FOLLOW-UP WITH PRIMARY CARE PROVIDER AND ADVISE THEM TO GET REPEAT PORTS FROM OUR FACILITY. IF YOU HAD ANY FARIBA WRAP/SPLINTS THAT WERE APPLIED HERE, PLEASE DO NOT REMOVE THEM UNTIL YOU SEE YOUR PRIMARY CARE OR SPECIALTY. REFERRALS: Referrals: CHALINO MOMIN MD (PCP) Time of Disposition: 14:02 DELMI GREEN MD Jul 28, 2024 14:03
[2024-07-28] MEDS: NAPROXEN 500 MG TABLET PO ONE (14:37)
[2024-07-28 14:44] VITALS: BP 130/70; PULSE 90; RESP 17; O2SAT 96
== END 2024-07-28 15:07 | disposition home or self-care (01) ==
LOC: EDH 11:57
DX: Z04.1 Encounter for examination and observation following transport accident (principal); E11.9 Type 2 diabetes mellitus without complications; I10 Essential (primary) hypertension; Z88.1 Allergy status to other antibiotic agents; X58.XXXA Exposure to other specified factors, initial encounter; Y93.89 Activity, other specified; Y92.89 Other specified places as the place of occurrence of the external cause; Y99.8 Other external cause status
CPT/HCPCS: 72070; 73030; 99283